=== PATIENT | female | born 1980 | race Caucasian/White ===

== ENCOUNTER → 2017-03-19 | Day surgery (SDC) | payer OTHER ==
[2017-02-27 09:54] VITALS: Ht 172.7 cm; Wt 82.7 kg
[~2017-03-19] VITALS: Ht 172.7 cm; Wt 82.7 kg
[~2017-03-19] MED LIST: ASPI81TA28 PO; ASTN NAE; ATEN50TA8 PO; ATROPINE SULFATE 0.1 MG/ML 5ML SYR IV PRN; B-COTAB53 PO; BCPILLS PO; BUPIVACAINE/EPINEPHRINE 0.25% 1:200,000 30 ML VIAL ONE; BUPIVACAINE/EPINEPHRINE 0.5% MPF 1:200,000 30 ML VIAL ONE; CEFAZOLIN 2000MG IV PUSH 10 ML IV SCH; CETI10TA84 PO; CHOL200010 PO; DEXAMETHASONE SOD INJ 4 MG/ML VIAL ONE; EpHEDrine SULFATE INJ 50 MG/ML AMP IV PRN; EpINEphrine INJ 1MG/ML AMP 1 MG/ML AMP ONE; FENTANYL CITRATE INJ 50 MCG/1 ML 2 ML VIAL IV PRN; FENTANYL CITRATE INJ 50 MCG/1 ML 2 ML VIAL ONE; FLUMAZENIL 0.1 MG/1 ML 10 ML VIAL IV ONE; KETO10TA PO; LACTATED RINGER'S 1000ML 1,000 ML IV SCH; LIDOCAINE HCL 2% 2 ML VIAL (20MG/ML) ONE; LNX125 PO; LORAZEPAM INJ 2 MG in SYRINGE 1 ML IV STA; MAGN1TAB19 PO; MIDAZOLAM HCL 1 MG/ML 2ML VIAL ONE; MISCCAP80 PO; MOME6000 NAE; MONT1TAB3 PO; OMEP40CA41 PO; ONDANSETRON INJ 2 MG/ML 2 ML VIAL IV PRN; ONDANSETRON INJ 2 MG/ML 2 ML VIAL ONE; OXYC-57 PO; OXYCODONE/ACETAMINOPHEN 5-325 TAB PO PRN; PROMETHAZINE HCL INJ 6.25 MG in SODIUM CHLORIDE 0.9% 50ML 50 ML IV PRN; PROPOFOL IV EMULSION 10 MG/ML 20 ML VIAL IV ONE; RANI150T3 PO; RIBO1TAB4 PO; SODIUM CHLORIDE 0.9% 1000ML 1,000 ML IV SCH; TIOT1AER INH; VNTHFA/IN INH
--- NOTE | 2017-03-19 06:39 | History & Physical Bridge - [place] ---
H&P Re-Evaluation Bridge Note: I have examined the patient, reviewed the History & Physical and in the interval since the performance of the History & Physical I have noted the following changes of clinical significance: No changes noted
--- NOTE | 2017-03-19 08:44 | [facility] Post Operative Brief Note ---
Immediate Operative Summary Operative Date Mar 19, 2017. Pre-Operative Diagnosis Left Shoulder Impingement Syndrome Post-Operative Diagnosis same Procedure(s) Performed Left Shoulder Arthroscopic Debridement, Open Bicep Tenodesis Surgeon Dr Carnes Coding Specialist Surgeon(s) Dereck Villarreal Estimated Blood Loss 5 mL Findings as above Specimens none Complication(s) None Disposition Recovery Room / PACU
[2017-03-19 08:49] VITALS: TEMP 37.2
--- NOTE | 2017-03-19 08:49 | Discharge Instructions-SurgCtr ---
Discharge Instructions Date of Service Mar 19, 2017. Visit Reason for Visit: Left Shoulder Impingement Syndrome Discharge Discharge Diagnosis / Problem: SAME ABOVE Discharge Goals Goal(s): Decrease discomfort, Improve function Medications Stopped Medications Name(s): Stopped Aspirin and Ibuprophen 7 days ago. ADRIÁN Duckworth Restart Stopped Medication(s): MAY RESTART ASPIRIN 03/19/2017 MAY RESTART IBUPROFEN WHEN FINISHED WITH TORADOL TAKE TORADOL EVERY 8 HOURS WITH FOOD UNTIL FINISHED Activity Recommendations Activity Limitations: as noted below Lifting Limitations: no more than 5 pounds, until after follow-up appointment Exercise/Sports Limitations: until after follow-up appointment Shower/Bathe: tomorrow Anesthesia . Post Anesthesia Instructions: If you have had General Anesthesia or IV Sedation: * Do not drive today. * Resume driving when surgeon permits. * Do not make important decisions or sign legal documents today. * Call surgeon for: 1. Temperature elevations greater than 101 degrees F. 2. Uncontrollable pain. 3. Excessive bleeding. 4. Persistent nausea and vomiting. 5. Medication intolerance (nausea, vomiting or rash). * For nausea and vomiting use only clear liquids such as: tea, soda, bouillon until nausea subsides, then gradually increase diet as tolerated. * If you have any concerns or questions, call your surgeon's office. If physician is unavailable and it is an emergency, call 911 or go to the nearest emergency room. . Instructions / Follow-Up Instructions / Follow-Up MEDICATIONS: * Resume previous medications unless instructed otherwise by your surgeon. * Always take pain medication on a full stomach or with food to avoid upset stomach. * Do not drink alcohol or drive while taking narcotics. * Ibuprofen or Tylenol may be taken if narcotic not needed. SPECIAL CARE INSTRUCTIONS: __ None _X_ Keep extremity elevated and iced x 48 hours; apply ice 20-30 minutes 8-10 times/day. May remove at night. _X_ Sling (WEAR FOR COMFORT ONLY) __24 hrs/day __ Remove at night __ Shoulder Immobilizer __ 24 hrs/day __ Remove at night _X_ Dressing __ Maintain until seen in office, may shower with plastic over site _X_ Remove dressings in 24-48 hours and then may shower _X_ Cover incisions with band-aids after showering _X_ Do not remove steri-strips (THEY MAY FALL OFF ON THEIR OWN) Call physician if chills or temperature rises above 102 degrees or pain unrelieved by prescribed pain medications at . . Diet Recommendations Home Diet: no limitations Fluid Restriction: None Procedures Procedures Performed: Left Shoulder Arthroscopic Debridement, Open Bicep Tenodesis Pending Studies Studies pending at discharge: no Work Instructions Return To Work: after follow-up Medical Emergencies . Who to Call and When: Medical Emergencies: If at any time you feel your situation is an emergency, please call 911 immediately. . Non-Emergent Contact Non-Emergency issues call your: Primary Care Provider Call Non-Emergent contact if: you have a fever, temperature is above 101.5 . . "Provider Documentation" section prepared by Warner Willett. .
--- NOTE | 2017-03-19 09:00 | OPERATIVE REPORT ---
DATE OF OPERATION: 03/19/2017 PREOPERATIVE DIAGNOSIS: Subacromial scar tissue formation and biceps tendonitis of the left shoulder. POSTOPERATIVE DIAGNOSIS: Same. PROCEDURE: Left shoulder diagnostic arthroscopy with extensive debridement and open subpectoral biceps tenodesis. SURGEON: Dr. Aung Carnes. FACILITIES ADMINISTRATOR: Dereck Willett PA-C, whose assistance was necessary for positioning the arm and helping with instrumentation. ANESTHESIA: Sedation with a left interscalene nerve block. COMPLICATIONS: None. CONDITION: Stable to PACU. INDICATIONS: Ashley is a pleasant 37-year-old female who underwent a decompression, distal clavicle resection 15 months ago. Her AC joint pain is improved but unfortunately she has had this chronic subacromial and biceps tendon pain. I treated her conservatively for a year and a half. Repeat MRI was essentially negative. She elected to undergo scar tissue excision and possible open biceps tenodesis. OPERATION AND FINDINGS: DESCRIPTION OF PROCEDURE: On 03/19/2017, she arrived at [facility] for the above procedure. She was seen in the preoperative holding area and the operative extremity was identified and signed. She was given a preoperative antibiotic and a left interscalene nerve block. She was taken back to the operating room, laid on the table in supine position and given basic sedation. The left shoulder was then prepped and draped in sterile fashion. Time-out was done and the patient and operative extremity was properly identified. On preoperative physical examination, she had full range of motion, no evidence of adhesive capsulitis. The scope was placed in the posterior portal. Diagnostic arthroscopy showed no cartilage damage to the humeral head or the glenoid. The supraspinatus, infraspinatus, teres minor and subscapularis were all checked and intact. The biceps tendon went through a normal sized biceps shadi mechanism, but was red on the dorsal aspect. There was a little fraying of the anterior labrum. An anterior portal was made. A shaver was used to start a small debridement of the intraarticular structures. The biceps tendon was pulled into the joint, which showed further redness and pathology. The biceps tendon was then arthroscopically tenotomized. The scope was then put into the subacromial space. A lateral portal was made. A shaver was used to start a debridement of the area and remove all adhesions. There were several adhesions that went directly from the rotator cuff up to the acromion. Time was spent doing a complete extensive debridement to ensure that the interval was completely freed up. Time was also spent ensuring hemostasis. The bursal side of the rotator cuff was examined extensively without evidence of tear. Arthroscopic instruments were then removed from the shoulder. Attention was turned to an open biceps tenodesis. A small incision was made over the inferior border of the pec major. Dissection was taken down through the fascia and the long head of biceps tendon was delivered out of the wound. The biceps tendon was then whip stitched at the anticipated level of tenodesis and the remainder of the tendon was discarded. A 6 mm hole was drilled in the bicipital groove and the biceps tendon was tenodesed with an Arthrex button that was passed through the posterior cortex in a tension slide technique to deliver the tendon into the 6 mm hole. This gave good fixation. The wound was then irrigated and closed with 3-0 Vicryl and running 3-0 Monocryl. Steri-Strips were placed. Portal sites were closed with 3-0 nylon. She was then placed in a soft dressing and a regular arm sling. She was then taken to the postanesthesia care unit in stable condition. She tolerated the procedure well. I attest to the content of the Intraoperative Record and any orders documented therein. Any exception s are noted below.
--- NOTE | 2017-03-19 09:20 | Anesthesiology Progress Note ---
Anesthesia Post Op Note Date & Time Mar 19, 2017 at 09:18 Vital Signs Pain Intensity: 0 Vital Signs Past 12 Hours Date Time Temp Pulse Resp B/P (MAP) Pulse Ox O2 Delivery O2 Flow Rate FiO2 03/19/17 08:49 37.2 113 16 113/57 (75) 93 Room Air 03/19/17 07:44 99 99 03/19/17 07:44 98 03/19/17 07:41 132/95 03/19/17 07:39 101 8 98 03/19/17 07:39 100 03/19/17 07:37 132/91 03/19/17 07:34 108 0 96 03/19/17 07:34 106 03/19/17 07:29 108 0 03/19/17 07:24 105 0 03/19/17 07:19 104 0 03/19/17 07:14 108 0 03/19/17 07:09 104 0 03/19/17 07:04 0 03/19/17 06:59 0 03/19/17 06:54 0 03/19/17 06:41 36.9 103 16 133/89 (104) 98 Room Air Notes Mental Status: alert / awake / arousable, participated in evaluation Pt Amnestic to Procedure: Yes Nausea / Vomiting: adequately controlled Pain: adequately controlled Airway Patency, RR, SpO2: stable & adequate BP & HR: stable & adequate Hydration State: stable & adequate Anesthetic Complications: no major complications apparent Block working well in pacu
[2017-03-19 09:27] VITALS: BP 123/86; PULSE 100; O2SAT 95
== END | disposition home or self-care (01) ==
LOC: X.SURG 06:20
PROVIDERS: ATTEND Orthopaedic Surgery
DX: M75.22 Bicipital tendinitis, left shoulder (principal); M62.89 Other specified disorders of muscle; R00.0 Tachycardia, unspecified; J45.909 Unspecified asthma, uncomplicated; E78.00 Pure hypercholesterolemia, unspecified; K21.9 Gastro-esophageal reflux disease without esophagitis

== ENCOUNTER 2023-07-14 18:45 | Inpatient (IN) ==
[2023-07-14] MEDS: ONDANSETRON INJ 2 MG/ML 2 ML VIAL IV STA ×2 (19:12→23:46)
[2023-07-14] MEDS: SODIUM CHLORIDE 0.9% 500 ML IV STA (19:12)
[2023-07-14] MEDS: ONDANSETRON INJ 2 MG/ML 2 ML VIAL ONE (19:13)
[2023-07-14 19:24] LABS: iSTAT Creatinine 0.7 mg/dl (0.6-1.3); iSTAT Ionized Calcium 1.24 mmol/l (1.12-1.32); iSTAT Potassium 4.2 mmol/L (3.3-5.0)
--- NOTE | 2023-07-14 19:43 | XRay Report ---
SINGLE VIEW CHEST CLINICAL HISTORY: Dizziness. FINDINGS: An AP, portable, upright chest radiograph is compared to study dated 07/02/2023. The cardiome diastinal silhouette is top normal for projection. There is mild bibasilar atelectasis. The lungs and pleural spaces are otherwise clear. No pneumothorax is seen. The bony thorax is grossly intact. Post operative change is seen along the left humeral shaft. IMPRESSION: No acute cardiopulmonary abnormality. ACT 112: Negative or not required by law. Electronically signed by: Rafael Chen M.D. 07/14/2023 7:41 PM
[2023-07-14] MEDS: diazePAM 5 MG/ML 10ML VIAL IV STA ×3 (19:49→23:42)
[2023-07-14 19:59] LABS: Basophils # (auto) 0.07 K/uL (0.00-0.20); Basophils % (auto) 0.5 %; Eosinophils % (auto) 0.7 %; Hematocrit (blood only) 44.5 % (37.0-47.0); Hemoglobin 14.6 g/dl (12.0-16.0); Immature Granulocytes # (auto) 0.07 K/uL (0.01-0.20); Immature Granulocytes % (auto) 0.5 %; Lymphocytes # (auto) 1.62 K/uL (1.20-3.40); Lymphocytes % (auto) 11.5 %; Mean Corpuscular Hemoglobin 27.7 pg (25.0-34.0); Mean Corpuscular Hgb Conc 32.8 g/dL (32.0-36.0); Mean Corpuscular Volume 84.4 fL (80.0-100.0); Mean Platelet Volume 11.2 fL (9.4-12.4); Monocytes # (auto) 0.93 K/uL (0.11-0.59); Monocytes % (auto) 6.6 %; Neutrophils # (auto) 11.33 K/uL (1.40-6.50); Neutrophils % (auto) 80.2 %; Platelet Count 314 K/uL (130-400); RDW Coefficient of Variation 12.7 % (11.5-14.5); RDW Standard Deviation 38.9 fL (36.4-46.3); Red Blood Count 5.27 M/uL (4.20-5.40); White Blood Count 14.12 K/ul (4.8-10.8)
[2023-07-14 20:15] LABS: Alanine Aminotransferase 30 U/L (7-52); Albumin Globulin Ratio 1.5 (0.9-2); Albumin Level 5.1 gm/dl (3.4-5.0); Alkaline Phosphatase 84 U/L (34-104); Anion Gap 11 (3-11); Aspartate Aminotransferase 22 U/L (13-39); BUN Creatinine Ratio 10.5 (10-20); Bilirubin,Total 0.4 mg/dl (0.2-1.0); Blood Urea Nitrogen 9 mg/dl (6-23); Calcium 10.3 mg/dl (8.6-10.3); Carbon Dioxide 25 mmol/L (21-32); Chloride 102 mmol/L (98-107); Est GFR (African American) 97.3 ml/min; Est GFR (Non-African American) 83.9 ml/min; Globulin 3.4 gm/dl (2.5-4.0); Glucose 130 mg/dl (70-99(Fasting)); Potassium 4.1 mmol/L (3.5-5.1); Sodium 138 mmol/L (136-145); Total Protein 8.5 gm/dl (6.0-8.3)
[2023-07-14] MEDS: OPTIRAY 320 125ml IV ONE (20:16)
--- NOTE | 2023-07-14 20:44 | Emergency Department Note ---
Impression & Plan Dizziness, Nausea & vomiting ED Provider Note NAME: CARMEN OROZCO AGE: 43 SEX: Female INFORMANT: Patient ED PROVIDER(S): Jose Guadalupe Melvin MD CHIEF COMPLAINT: Dizziness PLAN: Disposition: Admitted Outpatient prescription management: none Referral: None MEDICAL DECISION MAKING: Patient was evaluated. IV was established. Patient was treated with IV Zofran and also with a small dose of IV Valium. I-STAT did not reveal any acute findings. Patient was sent for CT and CT angiography of the head and neck. Patient did have weakness in the lower extremities that was more so on the right side. Patient did have a tremor in the right upper extremity which she states she has had before. Head CT negative. CT angiography of the head and neck did not show any acute findings. 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 Patient did require additional doses of the Valium and Zofran. She underwent MR imaging and thankfully no acute process was identified. Radiology noted no ischemia or tumor. Patient CBC does show a mild leukocytosis which could be related to her vomiting. The patient does have a slight elevation of inflammatory markers as well. Further management in the hospital will be necessary as the patient is requiring repeat doses of medications IV in order to control the symptoms. Discussed with patient and family. They are in agreement. Consultation was made with the [facility] service. Discussed the case with . Patient was evaluated in the ER and admitted for further management. Care/management discussed with: natural sciences manager Level of care consideration(s): After review of the information above and other included data, I feel the patient requires escalation of care to admission Triage Nursing notes: reviewed and agree them. Vital Signs: reviewed and remarkable for no significant abnormalities Additional History obtained from: none Chronic Medical/Social Conditions affecting care: none Prior/ Outside/ External records reviewed: none Differential Diagnosis: Benign positional vertigo, dehydration, hypovolemia, anemia, tumor, infection, hypoglycemia, electrolyte abnormalities, cardiac sources, intracerebral event, toxicologic, neurologic, as well as other pathologies. Diagnostics, independently interpreted by me: ECG: Twelve-lead ECG was sinus tachycardia [address] abnormality. No acute ischemia Cardiac Monitoring: Cardiac monitoring ordered by me: The patient was placed on continuous cardiac monitoring and observed. It revealed a normal sinus rhythm at 100 beats per minute without ectopy or evidence of dysrhythmia. Medical decision rules: none Imaging studies: I refer you to the EMR for further details. HPI: 43 year old Female arrives for evaluation of dizziness this is been going on for about 2 weeks. Patient states she feels generally weak. She is beginning worsening tremor in the right upper extremity.. Patient states he was taking meclizine which was helping throughout the week but then all day today she has had increased dizziness, nausea and vomiting. Patient has no complaints of pain. Patient does have a history of syncope. She notes having outpatient cardiac monitoring that did not reveal any problems. She does have a resting borderline sinus tachycardia. Pt denies headache, fevers, chills, diaphoresis, visual changes, neck pain, chest pain, breathing difficulties, abdominal pain, back pain, melena, hematochezia, urinary symptoms, numbness, lymphadenopathy, rash, or other complaints. PAST MEDICAL HISTORY: See Below, hyperlipidemia, sinus tachycardia, PAST SURGICAL HISTORY: See Below, history carpal tunnel release SOCIAL HISTORY: See Below, employed HOME MEDICATIONS: See Below ALLERGIES: See Below VITALS: See Below PHYSICAL EXAMINATION: GENERAL: Awake, alert, anxious-appearing, in no distress HENT: Normocephalic, atraumatic. Oropharynx unremarkable. EYES: Normal conjunctiva. Sclera non-icteric. PERRLA. EOMI. Lateral nystagmus noted. No vertical or rotatory nystagmus. NECK: Inspection normal. Non-tender. Supple. No nuchal rigidity. FROM. No masses. RESPIRATORY: Clear to auscultation. No wheezes. No rales. Normal respiratory effort. CARDIAC: Normal rate. Normal rhythm. No murmurs. No rubs. Extremities warm and well perfused. Pulses equal. No JVD. GI: Soft, non-distended. No tenderness to palpation. No rebound or guarding. No masses. RECTAL: Deferred. MUSCULOSKELETAL: Atraumatic. Chest examination reveals no tenderness. The back is symmetrical on inspection without obvious abnormality. There is no CVA tenderness to palpation. No joint edema. LOWER EXTREMITIES: Calves are equal size bilaterally and non-tender. No edema. No discoloration. NEURO: Normal sensorium. No sensory deficits noted. Patient does have some mild weakness in the lower extremities which seems more on the right. Patient does have some drift in the right lower extremity. No upper extremity drifting. Normal rapid alternating movements present. Patient is able to complete [id number] on both sides but does have difficulty with doing the right heel on the left patricio. Cranial nerves are intact 2 through 12 are intact. Speech is normal SKIN: No rash or jaundice noted. PROCEDURES: none CRITICAL CARE: none OBSERVATION NOTE: none Past Med/Surg History Medical History Obesity Depression Migraine headache Asthma Atypical nevus Chronic GERD Chronic sinusitis Hyperlipidemia Irritable bowel syndrome Mitral valve prolapse Sinus tachycardia Surgical History History of carpal tunnel release Nausea and vomiting after administration of anesthetic agent History of esophagogastroduodenoscopy (EGD) History of laparoscopy H/O shoulder surgery Family History Mother Cardiac disorder Allergy Asthma Family history of diabetes mellitus Father Asthma Brother Asthma Grandfather (Maternal) Hypertension Stroke Aunt Breast cancer Grandfather (Paternal) Myocardial infarction Uncle Prostate cancer Denies family history of Ovarian cancer Colorectal cancer Social History Smoking Status: Never smoker Second Hand Exposure: No; Do You Dip or Chew Tobacco: No; Hx Alcohol Use: Yes Alcohol type: wine Hx Substance Use: No Preferred Language: Fijian Communication Ability: Effective Director Biomedical Engineering Required: No Beliefs That Will Affect Care: None Current Living Situation: Spouse and Family Current Living Situation Comment: LIVES WITH SPOUSE, DAUGHTER current occupational status: employed 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 Feels Safe at Home: Yes Assistive Devices: Glasses Allergies Allergies Allergy/AdvReac Type Severity Reaction Status Date / Time adhesive Allergy Unknown ADHESIVE Verified 07/14/23 20:07 TAPE CAUSES RASH midazolam AdvReac Unknown PARADOXICAL Verified 07/14/23 20:07 REACTION-STAYS AWAKE propranolol AdvReac Unknown CHEST PAIN Verified 07/14/23 20:07 Home Meds Home Medications Medication Instructions Recorded Confirmed albuterol sulfate 2.5 mg/3 mL See Rx Instructions inhalation 10/25/18 07/14/23 (0.083 %) solution for nebulization .COMPLEX PRN Wheezing atenolol 50 mg tablet (Tenormin) 75 mg PO QPM 10/25/18 07/14/23 beclomethasone dipropionate 40 0 mcg inhalation BID PRN Shortness 10/25/18 07/14/23 mcg/actuation aerosol inhaler Of Breath Or Wheezing calcium carbonate-vitamin D3 1 tab PO QAM 10/25/18 07/14/23 [Caltrate 600 plus D] cetirizine 10 mg capsule (Zyrtec) 10 mg PO HS 10/25/18 07/14/23 digoxin 125 mcg (0.125 mg) tablet 125 mcg PO HS 10/25/18 07/14/23 lactobacillus combination no.8 1 tab PO HS 10/25/18 07/14/23 [Adult Probiotic] multivitamin 1 tab PO QAM 10/25/18 07/14/23 omeprazole 40 mg capsule,delayed 40 mg PO QAM 10/25/18 07/14/23 release ondansetron HCl 4 mg tablet 4 mg PO .COMPLEX PRN nausea 10/25/18 07/14/23 zinc 50 mg tablet 50 mg PO QAM 10/25/18 07/14/23 montelukast 10 mg tablet 10 mg PO QAM 04/13/19 07/14/23 (Singulair) famotidine 20 mg tablet (Pepcid) 20 mg PO HS 04/25/20 07/14/23 bupropion HCl 150 mg 24 hr tablet, 150 mg PO QPM 02/26/21 07/14/23 extended release (Wellbutrin XL) albuterol sulfate 90 mcg/actuation 2 inh inhalation QID PRN Wheezing 12/25/21 07/14/23 aerosol inhaler cholecalciferol (vitamin D3) 50 50 mcg PO QAM 12/25/21 07/14/23 mcg (2,000 unit) capsule (Vitamin D3) tiotropium 2.5 mcg-olodaterol 2.5 2 puff inhalation QAM 12/25/21 07/14/23 mcg/actuation mist for inhalation (Stiolto Respimat) triamcinolone acetonide 55 mcg 2 spray intranasal DAILY 06/25/23 07/14/23 nasal spray aerosol atenolol 50 mg tablet 100 mg PO QAM 07/14/23 07/14/23 azelastine 137 mcg (0.1 %) nasal 2 spray intranasal BID 07/14/23 07/14/23 spray aerosol vitamin B complex 1 tab PO DAILY 07/14/23 07/14/23 Results & Data (ED) Vital Signs Vital Signs - 24 hr 07/14/23 18:51 07/14/23 19:30 07/14/23 22:49 Temperature 36.3 C L Temperature Source Temporal Artery Scan Pulse Rate 104 H 108 H Pulse Rate [Apical] 108 H Respiratory Rate 20 18 Respiratory Effort / Characteristics Non-Labored Spontaneous Non-Labored Respiratory Depth Normal Normal Respiratory Pattern Regular Blood Pressure 142/88 H Blood Pressure [Right Arm] 145/98 H Blood Pressure Mean 106 Blood Pressure Mean [Right Arm] 113 Pulse Oximetry 96 96 Oxygen Delivery Method Room Air Room Air Sepsis Recent Fever Within 48 Hours No Sepsis New/Unexplained Change in Mental Status N/A Sepsis Action Taken by Nursing No Action Required 07/14/23 23:22 Temperature Temperature Source Pulse Rate 102 H Pulse Rate [Apical] Respiratory Rate Respiratory Effort / Characteristics Respiratory Depth Respiratory Pattern Blood Pressure Blood Pressure [Right Arm] Blood Pressure Mean Blood Pressure Mean [Right Arm] Pulse Oximetry Oxygen Delivery Method Sepsis Recent Fever Within 48 Hours Sepsis New/Unexplained Change in Mental Status Sepsis Action Taken by Nursing Laboratory Data 07/14/23 19:05 07/14/23 19:05 Lab Results 07/14/23 07/14/23 Range/Units 19:05 19:12 WBC 14.12 H (4.8-10.8) K/ul RBC 5.27 (4.20-5.40) M/uL Hgb 14.6 (12.0-16.0) g/dl POC Hgb 15.0 (12.0-16.0) g/dl Hct 44.5 (37.0-47.0) % POC Hct 44 (37-47) % MCV 84.4 (80.0-100.0) fL MCH 27.7 (25.0-34.0) pg MCHC 32.8 (32.0-36.0) g/dL RDW Std Deviation 38.9 (36.4-46.3) fL RDW Coeff of Shanon 12.7 (11.5-14.5) % Plt Count 314 (130-400) K/uL MPV 11.2 (9.4-12.4) fL Immature Gran % (Auto) 0.5 % Neut % (Auto) 80.2 % Lymph % (Auto) 11.5 % [place] % (Auto) 6.6 % Eos % (Auto) 0.7 % Baso % (Auto) 0.5 % Neut # (Auto) 11.33 H (1.40-6.50) K/uL Lymph # (Auto) 1.62 (1.20-3.40) K/uL [place] # (Auto) 0.93 H (0.11-0.59) K/uL Eos # (Auto) 0.10 (0.00-0.50) K/uL Baso # (Auto) 0.07 (0.00-0.20) K/uL Immature Gran # (Auto) 0.07 (0.01-0.20) K/uL ESR 48 H (0-20) mm/hr POC Sodium 140 (135-144) mmol/L Sodium 138 (136-145) mmol/L POC Potassium 4.2 (3.3-5.0) mmol/L Potassium 4.1 (3.5-5.1) mmol/L POC Chloride 103 (101-112) mmol/L Chloride 102 (98-107) mmol/L Carbon Dioxide 25 (21-32) mmol/L POC Total CO2 26 (24-31) mmol/L Anion Gap 11 (3-11) POC Anion Gap 16.0 (16-25) mmol/L POC BUN 8 (7-18) mg/dl BUN 9 (6-23) mg/dl Creatinine 0.86 (0.6-1.2) mg/dl POC Creatinine 0.7 (0.6-1.3) mg/dl Est Cr Clr Drug Dosing Not Reportable Est GFR ( Amer) 97.3 ml/min Est GFR (Non-Af Amer) 83.9 ml/min BUN/Creatinine Ratio 10.5 (10-20) Glucose 130 H (70-99(Fasting)) mg/dl POC Glucose (other) 128 H (70-99) mg/dl Calcium 10.3 (8.6-10.3) mg/dl POC Ioniz Calcium Nathan 1.24 (1.12-1.32) mmol/l Total Bilirubin 0.4 (0.2-1.0) mg/dl AST 22 (13-39) U/L ALT 30 (7-52) U/L Alkaline Phosphatase 84 (34-104) U/L C-Reactive Protein 0.72 H (0-0.5) mg/dl Total Protein 8.5 H (6.0-8.3) gm/dl Albumin 5.1 H (3.4-5.0) gm/dl Globulin 3.4 (2.5-4.0) gm/dl Albumin/Globulin Ratio 1.5 (0.9-2) HCG, Qual Negative (Negative) Administered Medications Sodium Chloride (Nss) 1,000 mls @ 125 mls/hr IV .Q8H BENJAMÍN Stop: 08/13/23 23:44 Last Admin: 07/15/23 01:03 Dose: 125 mls/hr Documented By: JAYDEN Discontinued Medications Diazepam (Diazepam 5 Mg/Ml 10ml Vial) 1 mg IV NOW STA Stop: 07/14/23 19:13 Last Admin: 07/14/23 19:49 Dose: 1 mg Documented By: JAYDEN Diazepam (Diazepam 5 Mg/Ml 10ml Vial) 2.5 mg IV NOW STA Stop: 07/14/23 20:34 Last Admin: 07/14/23 20:37 Dose: 2.5 mg Documented By: JAYDEN Diazepam (Diazepam 5 Mg/Ml 10ml Vial) 2.5 mg IV NOW STA Stop: 07/14/23 23:25 Last Admin: 07/14/23 23:42 Dose: 2.5 mg Documented By: JAYDEN Diazepam (Diazepam 5 Mg/Ml 10ml Vial) 2.5 mg IV NOW STA Stop: 07/15/23 00:56 Last Admin: 07/15/23 01:03 Dose: 2.5 mg Documented By: JAYDEN Gadobutrol (Gadobutrol 65ml Vial) 10 ml IV ONCE ONE Stop: 07/14/23 22:05 Last Admin: 07/14/23 22:05 Dose: 10 ml Documented By: DANITZA Sodium Chloride (Nss) 500 mls @ 999 mls/hr IV .Q31M STA Stop: 07/14/23 19:39 Last Infusion: 07/14/23 19:48 Dose: Infused Documented By: Admin: 07/14/23 19:12 Dose: 999 mls/hr Documented By: TATIANNA Promethazine HCl (Phenergan) 12.5 mg in 50.5 mls @ 202 mls/hr IV NOW STA Stop: 07/15/23 01:10 Last Admin: 07/15/23 01:03 Dose: 202 mls/hr Documented By: JAYDEN Ioversol (Optiray 320 125ml) 119 ml IV ONCE ONE Stop: 07/14/23 20:17 Last Admin: 07/14/23 20:16 Dose: 119 ml Documented By: MICHELE Ondansetron HCl (Ondansetron Inj 2 Mg/Ml 2 Ml Vial) Confirm Administered Dose 4 mg .ROUTE .STK-MED ONE Stop: 07/14/23 19:08 Last Admin: 07/14/23 19:13 Dose: Not Given Documented By: TATIANNA Ondansetron HCl (Ondansetron Inj 2 Mg/Ml 2 Ml Vial) 4 mg IV NOW STA Stop: 07/14/23 19:09 Last Admin: 07/14/23 19:12 Dose: 4 mg Documented By: TATIANNA Ondansetron HCl (Ondansetron Inj 2 Mg/Ml 2 Ml Vial) 4 mg IV NOW STA Stop: 07/14/23 23:44 Last Admin: 07/14/23 23:46 Dose: 4 mg Documented By: JAYDEN Imaging Data Radiologist's Impression: Chest X-Ray 07/14/23 18:56 SINGLE VIEW CHEST CLINICAL HISTORY: Dizziness. FINDINGS: An AP, portable, upright chest radiograph is compared to study dated 07/02/2023. The cardiomediastinal silhouette is top normal for projection. There is mild bibasilar atelectasis. The lungs and pleural spaces are otherwise clear. No pneumothorax is seen. The bony thorax is grossly intact. Postoperative change is seen along the left humeral shaft. IMPRESSION: No acute cardiopulmonary abnormality. ACT 112: Negative or not required by law. Electronically signed by: Rafael Chen M.D. 07/14/2023 7:41 PM Head CTA 07/14/23 19:11 Exam(s): CTA HEAD With Contrast IV Amt: 119 cc opti 320 EXAM: CT Angiography Head With Intravenous Contrast CLINICAL HISTORY: Reason for exam: vertigo. TECHNIQUE: Axial computed tomographic angiography images of the head with intravenous contrast. CTDI is 14.53 mGy and DLP is 7.27 mGy-cm. Automated exposure control was utilized for the study. A dose lowering technique was utilized adhering to the principles of ALARA. MIP reconstructed images were created and reviewed. CONTRAST: Patient received 119 cc opti 320 of IV contrast COMPARISON: No relevant prior studies available. FINDINGS: Right internal carotid artery: No acute findings. Intracranial segment is patent with no significant stenosis. No aneurysm. Right anterior cerebral artery: Unremarkable. No occlusion or significant stenosis. No aneurysm. Right middle cerebral artery: Unremarkable. No occlusion or significant stenosis. No aneurysm. Right posterior cerebral artery: Unremarkable. No occlusion or significant stenosis. No aneurysm. Right vertebral artery: Unremarkable as visualized. Left internal carotid artery: No acute findings. Intracranial segment is patent with no significant stenosis. No aneurysm. Left anterior cerebral artery: Unremarkable. No occlusion or significant stenosis. No aneurysm. Left middle cerebral artery: Unremarkable. No occlusion or significant stenosis. No aneurysm. 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 No occlusion or significant stenosis. Left vertebral artery: Unremarkable as visualized. Basilar artery: Unremarkable. No occlusion or significant stenosis. No aneurysm. IMPRESSION: No large vessel intracranial occlusion. 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 Electronically signed by: Marcin Mclain M.D. 07/14/23 21:03 PM Neck CTA 07/14/23 19:11 Exam(s): CTA NECK With Contrast IV Amt: 119 cc opti 320 EXAM: CT Angiography Neck With Intravenous Contrast CLINICAL HISTORY: Reason for exam: vertigo. TECHNIQUE: Routine carotid CT angiography protocol was performed with intravenous contrast. NASCET criteria using the distal ICAs for comparison were used for evaluation of stenoses. CTDI is 13.5 mGy and DLP is 550.7 mGy-cm. Automated exposure control was utilized for the study. A dose lowering technique was utilized adhering to the principles of ALARA. MIP reconstructed images were created and reviewed. CONTRAST: Patient received 119 cc opti 320 of IV contrast COMPARISON: None. FINDINGS: VASCULATURE: Right common carotid artery: Unremarkable. No occlusion or significant stenosis. No dissection. Right internal carotid artery: Unremarkable. Extracranial segment is patent with no occlusion or significant stenosis. No dissection. Right external carotid artery: Unremarkable. No occlusion. Right vertebral artery: Unremarkable. No occlusion or significant stenosis. No dissection. Left common carotid artery: Unremarkable. No occlusion or significant stenosis. No dissection. Left internal carotid artery: Unremarkable. Extracranial segment is patent with no occlusion or significant stenosis. No dissection. Left external carotid artery: Unremarkable. No occlusion. Left vertebral artery: Unremarkable. No occlusion or significant stenosis. No dissection. NECK: Bones/joints: Unremarkable. No acute fracture. Soft tissues: Unremarkable. Sinuses: Mucus retention cysts within the right maxillary sinus with mild mucosal thickening. Lung apices: Clear. CAROTID STENOSIS REFERENCE USING NASCET CRITERIA: % ICA stenosis = (1 - narrowest ICA diameter/diameter of distal cervical ICA) x 100. Mild - <50% stenosis. Moderate - 50-69% stenosis. Severe - 70-94% stenosis. Near occlusion - 95-99% stenosis. Occluded - 100% stenosis. IMPRESSION: No acute findings in the arteries of the neck. Electronically signed by: Marcin Mclain M.D. 07/14/23 21:[address] 07/14/23 19:14 Exam(s): CT HEAD Without Contrast EXAM: CT Head Without Intravenous Contrast CLINICAL HISTORY: Reason for exam: vertigo. TECHNIQUE: Axial computed tomography images of the head/brain without intravenous contrast. CTDI is 31.65 mGy and DLP is 512.02 mGy-cm. Automated exposure control was utilized for the study. A dose lowering technique was utilized adhering to the principles of ALARA. COMPARISON: No relevant prior studies available. FINDINGS: Brain: Unremarkable. No hemorrhage. No significant white matter disease. No edema. Ventricles: Unremarkable. No ventriculomegaly. Bones/joints: Unremarkable. No acute fracture. Soft tissues: Unremarkable. Sinuses: Unremarkable as visualized. No acute sinusitis. Mastoid air cells: Unremarkable as visualized. No mastoid effusion. IMPRESSION: Normal head/brain CT. Electronically signed by: Marcin Mclain M.D. 07/14/23 20:52 PM Brain MRI 07/14/23 21:16 Exam(s): MRI HEAD W/WO Contrast IV Amt: 10 CC REA EXAM: MR Head Without and With Intravenous Contrast CLINICAL HISTORY: Reason for exam: severe vertigo. TECHNIQUE: Magnetic resonance images of the head/brain without and with intravenous contrast in multiple planes. CONTRAST: Patient received 10 CC REA of IV contrast COMPARISON: No relevant prior studies available. FINDINGS: Brain: Unremarkable. No mass. No hemorrhage. No acute infarct. Ventricles: Unremarkable. No ventriculomegaly. Bones/joints: Unremarkable. No acute fracture. Sinuses: 1.8 cm mucus retention cyst in the right maxillary sinus. No acute sinusitis. Mastoid air cells: Unremarkable as visualized. No mastoid effusion. Orbits: Unremarkable as visualized. IMPRESSION: No acute findings in the head/brain. Electronically signed by: Marcin Mclain M.D. 07/14/23 23:17 PM Discharge Plan Visit Data Chief Complaint: Vertigo Stated Complaint: VERTIGO ED Provider: Jose Guadalupe Melvin Discharge Problem: Dizziness, Nausea & vomiting
--- NOTE | 2023-07-14 20:53 | CT Scan Report ---
Exam(s): CT HEAD Without Contrast EXAM: CT Head Without Intravenous Contrast CLINICAL HISTORY: Reason for exam: vertigo. TECHNIQUE: Axial computed tomography images of the head/brain without intravenous contrast. CTDI is 31.65 mGy and DLP is 512.02 mGy-cm. Automated exposure control was utilized for the study. A dose lowering technique was utilized adhering to the principles of ALARA. COMPARISON: No relevant prior studies available. FINDINGS: Brain: Unremarkable. No hemorrhage. No significant white matter disease. No edema. Ventricles: Unremarkable. No ventriculomegaly. Bones/joints: Unremarkable. No acute fracture. Soft tissues: Unremarkable. Sinuses: Unremarkable as visualized. No acute sinusitis. Mastoid air cells: Unremarkable as visualized. No mastoid effusion. IMPRESSION: Normal head/brain CT. Electronically signed by: Marcin Mclain M.D. 07/14/23 20:52 PM
--- NOTE | 2023-07-14 21:04 | CT Scan Report ---
Exam(s): CTA HEAD With Contrast IV Amt: 119 cc opti 320 EXAM: CT Angiography Head With Intravenous Contrast CLINICAL HISTORY: Reason for exam: vertigo. TECHNIQUE: Axial computed tomographic angiography images of the head with intravenous contrast. CTDI is 14.53 mGy and DLP is 7.27 mGy-cm. Automated exposure control was utilized for the study. A dose lowering technique was utilized adhering to the principles of ALARA. MIP reconstructed images were created and reviewed. CONTRAST: Patient received 119 cc opti 320 of IV contrast COMPARISON: No relevant prior studies available. FINDINGS: Right internal carotid artery: No acute findings. Intracranial segment is patent with no significant stenosis. No aneurysm. Right anterior cerebral artery: Unremarkable. No occlusion or significant stenosis. No aneurysm. Right middle cerebral artery: Unremarkable. No occlusion or significant stenosis. No aneurysm. Right posterior cerebral artery: Unremarkable. No occlusion or significant stenosis. No aneurysm. Right vertebral artery: Unremarkable as visualized. Left internal carotid artery: No acute findings. Intracranial segment is patent with no significant stenosis. No aneurysm. Left anterior cerebral artery: Unremarkable. No occlusion or significant stenosis. No aneurysm. Left middle cerebral artery: Unremarkable. No occlusion or significant stenosis. No aneurysm. 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 No occlusion or significant stenosis. Left vertebral artery: Unremarkable as visualized. Basilar artery: Unremarkable. No occlusion or significant stenosis. No aneurysm. IMPRESSION: No large vessel intracranial occlusion. 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 Electronically signed by: Marcin Mclain M.D. 07/14/23 21:03 PM
--- NOTE | 2023-07-14 21:07 | CT Scan Report ---
Exam(s): CTA NECK With Contrast IV Amt: 119 cc opti 320 EXAM: CT Angiography Neck With Intravenous Contrast CLINICAL HISTORY: Reason for exam: vertigo. TECHNIQUE: Routine carotid CT angiography protocol was performed with intravenous contrast. NASCET criteria using the distal ICAs for comparison were used for evaluation of stenoses. CTDI is 13.5 mGy and DLP is 550.7 mGy-cm. Automated exposure control was utilized for the study. A dose lowering technique was utilized adhering to the principles of ALARA. MIP reconstructed images were created and reviewed. CONTRAST: Patient received 119 cc opti 320 of IV contrast COMPARISON: None. FINDINGS: VASCULATURE: Right common carotid artery: Unremarkable. No occlusion or significant stenosis. No dissection. Right internal carotid artery: Unremarkable. Extracranial segment is patent with no occlusion or significant stenosis. No dissection. Right external carotid artery: Unremarkable. No occlusion. Right vertebral artery: Unremarkable. No occlusion or significant stenosis. No dissection. Left common carotid artery: Unremarkable. No occlusion or significant stenosis. No dissection. Left internal carotid artery: Unremarkable. Extracranial segment is patent with no occlusion or significant stenosis. No dissection. Left external carotid artery: Unremarkable. No occlusion. Left vertebral artery: Unremarkable. No occlusion or significant stenosis. No dissection. NECK: Bones/joints: Unremarkable. No acute fracture. Soft tissues: Unremarkable. Sinuses: Mucus retention cysts within the right maxillary sinus with mild mucosal thickening. Lung apices: Clear. CAROTID STENOSIS REFERENCE USING NASCET CRITERIA: % ICA stenosis = (1 - narrowest ICA diameter/diameter of distal cervical ICA) x 100. Mild - <50% stenosis. Moderate - 50-69% stenosis. Severe - 70-94% stenosis. Near occlusion - 95-99% stenosis. Occluded - 100% stenosis. IMPRESSION: No acute findings in the arteries of the neck. Electronically signed by: Marcin Mclain M.D. 07/14/23 21:05 PM
[2023-07-14 21:08] LABS: Pregnancy Test, Serum Negative (Negative)
[2023-07-14] MEDS: GADOBUTROL 65ML VIAL IV ONE (22:05)
[2023-07-14 22:31] LABS: C Reactive Protein 0.72 mg/dl (0-0.5)
--- NOTE | 2023-07-14 23:18 | Magnetic Resonance Report ---
Exam(s): MRI HEAD W/WO Contrast IV Amt: 10 CC REA EXAM: MR Head Without and With Intravenous Contrast CLINICAL HISTORY: Reason for exam: severe vertigo. TECHNIQUE: Magnetic resonance images of the head/brain without and with intravenous contrast in multiple planes. CONTRAST: Patient received 10 CC REA of IV contrast COMPARISON: No relevant prior studies available. FINDINGS: Brain: Unremarkable. No mass. No hemorrhage. No acute infarct. Ventricles: Unremarkable. No ventriculomegaly. Bones/joints: Unremarkable. No acute fracture. Sinuses: 1.8 cm mucus retention cyst in the right maxillary sinus. No acute sinusitis. Mastoid air cells: Unremarkable as visualized. No mastoid effusion. Orbits: Unremarkable as visualized. IMPRESSION: No acute findings in the head/brain. Electronically signed by: Marcin Mclain M.D. 07/14/23 23:17 PM
[2023-07-15] MEDS: SODIUM CHLORIDE 0.9% 1,000 ML IV SCH ×2 (01:03→02:56)
[2023-07-15] MEDS: PROMETHAZINE 12.5 MG/50.5 ML BAG IV STA (01:03)
[2023-07-15] MEDS: diazePAM 5 MG/ML 10ML VIAL IV STA (01:03)
--- NOTE | 2023-07-15 01:13 | History & Physical Report ---
Date of Service July 15, 2023 Assessment & Plan (1) Dizziness: Plan: 43-year-old female with past med history significant for hypertension, moderate persistent asthma, mixed rhinitis, mitral valve prolapse, sinus tachycardia, irritable bowel syndrome, gastroparesis, GERD, migraines presents with Ongoing vertigo for last 2 weeks. Initially meclizine seemed to help but lately it is not helping. Also having right upper extremity tremor for some time. And lately developed some weakness in right lower extremity.Today was having significant dizziness nausea and vomiting. No headaches. No fevers. Lights bothering her. No chest pain or shortness of breath. No abdominal pain. Normal bowel and bladder movements. Hemodynamics are okay. Patient has had COVID in February 2003 and in March 2023 had had a near syncopal episode and having chest burning and dyspnea on exertion. Seen by cardiology and had echocardiogram which showed showed mild mitral valve prolapse and also had Holter which showed inappropriate sinus tachycardia. Patient is on atenolol. Plan for Stress Test in August 2023. 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 for further recommendations History of inappropriate sinus tachycardia On atenolol and digoxin Follows with cardiology There is a plan for stress test Moderate persistent asthma Mixed rhinitis Continue home meds Will monitor Hypertension On atenolol Will monitor GERD On famotidine and omeprazole DVT prophylaxis SCDs for now Disposition Med/telemetry Full code History of Present Illness Chief Complaint: Severe vertigo Primary Care Provider: Leeroy Swift MD 43-year-old female with past med history significant for hypertension, moderate persistent asthma, mixed rhinitis, mitral valve prolapse, sinus tachycardia, irritable bowel syndrome, gastroparesis, GERD, migraines presents with Ongoing vertigo for last 2 weeks. Initially meclizine seemed to help but lately it is not helping. Also having right upper extremity tremor for some time. And lately developed some weakness in right lower extremity.Today was having significant dizziness nausea and vomiting. No headaches. No fevers. Lights bothering her. No chest pain or shortness of breath. No abdominal pain. Normal bowel and bladder movements. Hemodynamics are okay. Patient has had COVID in February 2003 and in March 2023 had had a near syncopal episode and having chest burning and dyspnea on exertion. Seen by cardiology and had echocardiogram which showed showed mild mitral valve prolapse and also had Holter which showed inappropriate sinus tachycardia. Patient is on atenolol. Plan for Stress Test in August 2023. Past medical status mentioned above. Past surgical history. EGD. EGD transendoscopic dilatation. Laparoscopic surgery looking for endometriosis. Shoulder arthroscopy. Social history. . No smoking. Alcohol rarely. No drug use. Family history. Father has allergies. Asthma. Mitral valve prolapse. Mother has allergies. Asthma. mitral valve prolapse. Maternal grandfather had pancreatic cancer. Stroke. Maternal grandmother had laryngeal cancer. Brother has asthma. Paternal grandmother had thyroid disorder. Allergies Allergy/AdvReac Type Severity Reaction Status Date / Time adhesive Allergy Unknown ADHESIVE Verified 07/14/23 20:07 TAPE CAUSES RASH midazolam AdvReac Unknown PARADOXICAL Verified 07/14/23 20:07 REACTION-STAYS AWAKE propranolol AdvReac Unknown CHEST PAIN Verified 07/14/23 20:07 Home Medications Medication Instructions Recorded Confirmed Type albuterol sulfate 2.5 mg/3 mL See Rx Instructions inhalation 10/25/18 07/14/23 History (0.083 %) solution for nebulization .COMPLEX PRN Wheezing atenolol 50 mg tablet (Tenormin) 75 mg PO QPM 10/25/18 07/14/23 History beclomethasone dipropionate 40 0 mcg inhalation BID PRN Shortness 10/25/18 07/14/23 History mcg/actuation aerosol inhaler Of Breath Or Wheezing calcium carbonate-vitamin D3 1 tab PO QAM 10/25/18 07/14/23 History [Caltrate 600 plus D] cetirizine 10 mg capsule (Zyrtec) 10 mg PO HS 10/25/18 07/14/23 History digoxin 125 mcg (0.125 mg) tablet 125 mcg PO HS 10/25/18 07/14/23 History lactobacillus combination no.8 1 tab PO HS 10/25/18 07/14/23 History [Adult Probiotic] multivitamin 1 tab PO QAM 10/25/18 07/14/23 History omeprazole 40 mg capsule,delayed 40 mg PO QAM 10/25/18 07/14/23 History release ondansetron HCl 4 mg tablet 4 mg PO .COMPLEX PRN nausea 10/25/18 07/14/23 History zinc 50 mg tablet 50 mg PO QAM 10/25/18 07/14/23 History montelukast 10 mg tablet 10 mg PO QAM 04/13/19 07/14/23 History (Singulair) famotidine 20 mg tablet (Pepcid) 20 mg PO HS 04/25/20 07/14/23 History bupropion HCl 150 mg 24 hr tablet, 150 mg PO QPM 02/26/21 07/14/23 History extended release (Wellbutrin XL) albuterol sulfate 90 mcg/actuation 2 inh inhalation QID PRN Wheezing 12/25/21 07/14/23 History aerosol inhaler cholecalciferol (vitamin D3) 50 50 mcg PO QAM 12/25/21 07/14/23 History mcg (2,000 unit) capsule (Vitamin D3) tiotropium 2.5 mcg-olodaterol 2.5 2 puff inhalation QAM 12/25/21 07/14/23 His tory mcg/actuation mist for inhalation (Stiolto Respimat) triamcinolone acetonide 55 mcg 2 spray intranasal DAILY 06/25/23 07/14/23 History nasal spray aerosol atenolol 50 mg tablet 100 mg PO QAM 07/14/23 07/14/23 History azelastine 137 mcg (0.1 %) nasal 2 spray intranasal BID 07/14/23 07/14/23 History spray aerosol vitamin B complex 1 tab PO DAILY 07/14/23 07/14/23 History Past Med/Surg History Medical History Obesity Depression Migraine headache Asthma Atypical nevus Chronic GERD Chronic sinusitis Hyperlipidemia Irritable bowel syndrome Mitral valve prolapse Sinus tachycardia Surgical History History of carpal tunnel release Nausea and vomiting after administration of anesthetic agent History of esophagogastroduodenoscopy (EGD) History of laparoscopy H/O shoulder surgery Family History Mother Cardiac disorder Allergy Asthma Family history of diabetes mellitus Father Asthma Brother Asthma Grandfather (Maternal) Hypertension Stroke Aunt Breast cancer Grandfather (Paternal) Myocardial infarction Uncle Prostate cancer Denies family history of Ovarian cancer Colorectal cancer Social History Smoking Status: Never smoker Second Hand Exposure: No; Do You Dip or Chew Tobacco: No; Hx Alcohol Use: Yes Alcohol type: wine Hx Substance Use: No Preferred Language: Icelandic Communication Ability: Effective Payroll And Benefits Assistant Required: No Beliefs That Will Affect Care: None Current Living Situation: Spouse Current Living Situation Comment: LIVES WITH SPOUSE, DAUGHTER current occupational status: employed 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 ENT- oropharynx clear Neck- supple, no JVD. Lungs- clear to auscultation no wheezing or crackles. Heart- regular rhythm; no murmur, no gallop. Abdomen- normal bowel sounds, benign Extremities- no pretibial edema, no erythema seen Neuro- alert, oriented PERRL, ; no facial palsy; no dysarthria; obeys commands Results & Data Results & Data Vital Signs (Past 12 Hours) Vital Signs Temp Pulse Pulse Resp BP BP Pulse Ox 07/14/23 23:22 102 H 07/14/23 22:49 108 H 18 145/98 H 96 07/14/23 19:30 108 H 07/14/23 18:51 36.3 C L 104 H 20 142/88 H 96 O2 Del Method 07/14/23 23:22 07/14/23 22:49 Room Air 07/14/23 19:30 07/14/23 18:51 Room Air Diagnostic Findings Laboratory Results WBC 14.12 K/ul (4.8-10.8) H 07/14/23 19:05 RBC 5.27 M/uL (4.20-5.40) 07/14/23 19:05 Hgb 14.6 g/dl (12.0-16.0) 07/14/23 19:05 POC Hgb 15.0 g/dl (12.0-16.0) 07/14/23 19:12 Hct 44.5 % (37.0-47.0) 07/14/23 19:05 POC Hct 44 % (37-47) 07/14/23 19:12 MCV 84.4 fL (80.0-100.0) 07/14/23 19:05 MCH 27.7 pg (25.0-34.0) 07/14/23 19:05 MCHC 32.8 g/dL (32.0-36.0) 07/14/23 19:05 RDW Std Deviation 38.9 fL (36.4-46.3) 07/14/23 19:05 RDW Coeff of Shanon 12.7 % (11.5-14.5) 07/14/23 19:05 Plt Count 314 K/uL (130-400) 07/14/23 19:05 MPV 11.2 fL (9.4-12.4) 07/14/23 19:05 Immature Gran % (Auto) 0.5 % 07/14/23 19:05 Neut % (Auto) 80.2 % 07/14/23 19:05 Lymph % (Auto) 11.5 % 07/14/23 19:05 [place] % (Auto) 6.6 % 07/14/23 19:05 Eos % (Auto) 0.7 % 07/14/23 19:05 Baso % (Auto) 0.5 % 07/14/23 19:05 Neut # (Auto) 11.33 K/uL (1.40-6.50) H 07/14/23 19:05 Lymph # (Auto) 1.62 K/uL (1.20-3.40) 07/14/23 19:05 [place] # (Auto) 0.93 K/uL (0.11-0.59) H 07/14/23 19:05 Eos # (Auto) 0.10 K/uL (0.00-0.50) 07/14/23 19:05 Baso # (Auto) 0.07 K/uL (0.00-0.20) 07/14/23 19:05 Immature Gran # (Auto) 0.07 K/uL (0.01-0.20) 07/14/23 19:05 ESR 48 mm/hr (0-20) H 07/14/23 19:05 POC Sodium 140 mmol/L (135-144) 07/14/23 19:12 Sodium 138 mmol/L (136-145) 07/14/23 19:05 POC Potassium 4.2 mmol/L (3.3-5.0) 07/14/23 19:12 Potassium 4.1 mmol/L (3.5-5.1) 07/14/23 19:05 POC Chloride 103 mmol/L (101-112) 07/14/23 19:12 Chloride 102 mmol/L (98-107) 07/14/23 19:05 Carbon Dioxide 25 mmol/L (21-32) 07/14/23 19:05 POC Total CO2 26 mmol/L (24-31) 07/14/23 19:12 Anion Gap 11 (3-11) 07/14/23 19:05 POC Anion Gap 16.0 mmol/L (16-25) 07/14/23 19:12 POC BUN 8 mg/dl (7-18) 07/14/23 19:12 BUN 9 mg/dl (6-23) 07/14/23 19:05 Creatinine 0.86 mg/dl (0.6-1.2) 07/14/23 19:05 POC Creatinine 0.7 mg/dl (0.6-1.3) 07/14/23 19:12 Est Cr Clr Drug Dosing Not Reportable 07/14/23 19:05 Est GFR ( Amer) 97.3 ml/min 07/14/23 19:05 Est GFR (Non-Af Amer) 83.9 ml/min 07/14/23 19:05 BUN/Creatinine Ratio 10.5 (10-20) 07/14/23 19:05 Glucose 130 mg/dl (70-99(Fasting)) H 07/14/23 19:05 POC Glucose (other) 128 mg/dl (70-99) H 07/14/23 19:12 Calcium 10.3 mg/dl (8.6-10.3) 07/14/23 19:05 POC Ioniz Calcium Nathan 1.24 mmol/l (1.12-1.32) 07/14/23 19:12 Total Bilirubin 0.4 mg/dl (0.2-1.0) 07/14/23 19:05 AST 22 U/L (13-39) 07/14/23 19:05 ALT 30 U/L (7-52) 07/14/23 19:05 Alkaline Phosphatase 84 U/L (34-104) 07/14/23 19:05 C-Reactive Protein 0.72 mg/dl (0-0.5) H 07/14/23 19:05 Total Protein 8.5 gm/dl (6.0-8.3) H 07/14/23 19:05 Albumin 5.1 gm/dl (3.4-5.0) H 07/14/23 19:05 Globulin 3.4 gm/dl (2.5-4.0) 07/14/23 19:05 Albumin/Globulin Ratio 1.5 (0.9-2) 07/14/23 19:05 HCG, Qual Negative (Negative) 07/14/23 19:05 Impressions Chest X-Ray 07/14/23 18:56 SINGLE VIEW CHEST CLINICAL HISTORY: Dizziness. FINDINGS: An AP, portable, upright chest radiograph is compared to study dated 07/02/2023. The cardiomediastinal silhouette is top normal for projection. There is mild bibasilar atelectasis. The lungs and pleural spaces are otherwise clear. No pneumothorax is seen. The bony thorax is grossly intact. Postoperative change is seen along the left humeral shaft. IMPRESSION: No acute cardiopulmonary abnormality. ACT 112: Negative or not required by law. Electronically signed by: Rafael Chen M.D. 07/14/2023 7:41 PM Head CTA 07/14/23 19:11 Exam(s): CTA HEAD With Contrast IV Amt: 119 cc opti 320 EXAM: CT Angiography Head With Intravenous Contrast CLINICAL HISTORY: Reason for exam: vertigo. TECHNIQUE: Axial computed tomographic angiography images of the head with intravenous contrast. CTDI is 14.53 mGy and DLP is 7.27 mGy-cm. Automated exposure control was utilized for the study. A dose lowering technique was utilized adhering to the principles of ALARA. MIP reconstructed images were created and reviewed. CONTRAST: Patient received 119 cc opti 320 of IV contrast COMPARISON: No relevant prior studies available. FINDINGS: Right internal carotid artery: No acute findings. Intracranial segment is patent with no significant stenosis. No aneurysm. Right anterior cerebral artery: Unremarkable. No occlusion or significant stenosis. No aneurysm. Right middle cerebral artery: Unremarkable. No occlusion or significant stenosis. No aneurysm. Right posterior cerebral artery: Unremarkable. No occlusion or significant stenosis. No aneurysm. Right vertebral artery: Unremarkable as visualized. Left internal carotid artery: No acute findings. Intracranial segment is patent with no significant stenosis. No aneurysm. Left anterior cerebral artery: Unremarkable. No occlusion or significant stenosis. No aneurysm. Left middle cerebral artery: Unremarkable. No occlusion or significant stenosis. No aneurysm. 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 No occlusion or significant stenosis. Left vertebral artery: Unremarkable as visualized. Basilar artery: Unremarkable. No occlusion or significant stenosis. No aneurysm. IMPRESSION: No large vessel intracranial occlusion. 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 Electronically signed by: Marcin Mclain M.D. 07/14/23 21:03 PM Neck CTA 07/14/23 19:11 Exam(s): CTA NECK With Contrast IV Amt: 119 cc opti 320 EXAM: CT Angiography Neck With Intravenous Contrast CLINICAL HISTORY: Reason for exam: vertigo. TECHNIQUE: Routine carotid CT angiography protocol was performed with intravenous contrast. NASCET criteria using the distal ICAs for comparison were used for evaluation of stenoses. CTDI is 13.5 mGy and DLP is 550.7 mGy-cm. Automated exposure control was utilized for the study. A dose lowering technique was utilized adhering to the principles of ALARA. MIP reconstructed images were created and reviewed. CONTRAST: Patient received 119 cc opti 320 of IV contrast COMPARISON: None. FINDINGS: VASCULATURE: Right common carotid artery: Unremarkable. No occlusion or significant stenosis. No dissection. Right internal carotid artery: Unremarkable. Extracranial segment is patent with no occlusion or significant stenosis. No dissection. Right external carotid artery: Unremarkable. No occlusion. Right vertebral artery: Unremarkable. No occlusion or significant stenosis. No dissection. Left common carotid artery: Unremarkable. No occlusion or significant stenosis. No dissection. Left internal carotid artery: Unremarkable. Extracranial segment is patent with no occlusion or significant stenosis. No dissection. Left external carotid artery: Unremarkable. No occlusion. Left vertebral artery: Unremarkable. No occlusion or significant stenosis. No dissection. NECK: Bones/joints: Unremarkable. No acute fracture. Soft tissues: Unremarkable. Sinuses: Mucus retention cysts within the right maxillary sinus with mild mucosal thickening. Lung apices: Clear. CAROTID STENOSIS REFERENCE USING NASCET CRITERIA: % ICA stenosis = (1 - narrowest ICA diameter/diameter of distal cervical ICA) x 100. Mild - <50% stenosis. Moderate - 50-69% stenosis. Severe - 70-94% stenosis. Near occlusion - 95-99% stenosis. Occluded - 100% stenosis. IMPRESSION: No acute findings in the arteries of the neck. Electronically signed by: Marcin Mclain M.D. 07/14/23 21:[address] 07/14/23 19:14 Exam(s): CT HEAD Without Contrast EXAM: CT Head Without Intravenous Contrast CLINICAL HISTORY: Reason for exam: vertigo. TECHNIQUE: Axial computed tomography images of the head/brain without intravenous contrast. CTDI is 31.65 mGy and DLP is 512.02 mGy-cm. Automated exposure control was utilized for the study. A dose lowering technique was utilized adhering to the principles of ALARA. COMPARISON: No relevant prior studies available. FINDINGS: Brain: Unremarkable. No hemorrhage. No significant white matter disease. No edema. Ventricles: Unremarkable. No ventriculomegaly. Bones/joints: Unremarkable. No acute fracture. Soft tissues: Unremarkable. Sinuses: Unremarkable as visualized. No acute sinusitis. Mastoid air cells: Unremarkable as visualized. No mastoid effusion. IMPRESSION: Normal head/brain CT. Electronically signed by: Marcin Mclain M.D. 07/14/23 20:52 PM Brain MRI 07/14/23 21:16 Exam(s): MRI HEAD W/WO Contrast IV Amt: 10 CC REA EXAM: MR Head Without and With Intravenous Contrast CLINICAL HISTORY: Reason for exam: severe vertigo. TECHNIQUE: Magnetic resonance images of the head/brain without and with intravenous contrast in multiple planes. CONTRAST: Patient received 10 CC REA of IV contrast COMPARISON: No relevant prior studies available. FINDINGS: Brain: Unremarkable. No mass. No hemorrhage. No acute infarct. Ventricles: Unremarkable. No ventriculomegaly. Bones/joints: Unremarkable. No acute fracture. Sinuses: 1.8 cm mucus retention cyst in the right maxillary sinus. No acute sinusitis. Mastoid air cells: Unremarkable as visualized. No mastoid effusion. Orbits: Unremarkable as visualized. IMPRESSION: No acute findings in the head/brain. Electronically signed by: Marcin Mclain M.D. 07/14/23 23:17 PM ECG Additional Comments: ECG. Sinus tachycardia rate of 105. Nonspecific T wave abnormality. Code Status & VTE Plan VTE Prophylaxis Plan VTE Prophylaxis will be ordered: Yes
[2023-07-15] MEDS ORDERED: ALBUTEROL 0.083% NEBU SOLN 3 ML VIAL INH PRN (02:10)
[2023-07-15] MEDS ORDERED: BECLOMETHASONE DIPROPIONATE INH PRN (02:10)
[2023-07-15] MEDS ORDERED: diazePAM 5 MG/ML 10ML VIAL IV PRN (02:10)
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
[2023-07-15] MEDS: ONDANSETRON INJ 2 MG/ML 2 ML VIAL IV PRN (07:48)
[2023-07-15] MEDS: diazePAM 5 MG TABLET PO PRN (08:02)
[2023-07-15 08:12] LABS: Basophils # (auto) 0.05 K/uL (0.00-0.20); Basophils % (auto) 0.5 %; Eosinophils # (auto) 0.06 K/uL (0.00-0.50); Eosinophils % (auto) 0.6 %; Hematocrit (blood only) 40.9 % (37.0-47.0); Hemoglobin 13.7 g/dl (12.0-16.0); Immature Granulocytes # (auto) 0.03 K/uL (0.01-0.20); Immature Granulocytes % (auto) 0.3 %; Lymphocytes # (auto) 2.36 K/uL (1.20-3.40); Lymphocytes % (auto) 23.2 %; Mean Corpuscular Hemoglobin 27.9 pg (25.0-34.0); Mean Corpuscular Hgb Conc 33.5 g/dL (32.0-36.0); Mean Corpuscular Volume 83.3 fL (80.0-100.0); Mean Platelet Volume 10.8 fL (9.4-12.4); Monocytes # (auto) 0.88 K/uL (0.11-0.59); Monocytes % (auto) 8.7 %; Neutrophils # (auto) 6.79 K/uL (1.40-6.50); Neutrophils % (auto) 66.7 %; Platelet Count 293 K/uL (130-400); RDW Coefficient of Variation 12.9 % (11.5-14.5); RDW Standard Deviation 38.7 fL (36.4-46.3); Red Blood Count 4.91 M/uL (4.20-5.40); White Blood Count 10.17 K/ul (4.8-10.8)
[2023-07-15 08:33] LABS: BUN Creatinine Ratio 12.3 (10-20); Calcium 9.8 mg/dl (8.6-10.3); Creatinine Clr Calc Pharmacy 124.1 ml/min; Est GFR (African American) 118.6 ml/min; Est GFR (Non-African American) 102.3 ml/min; Magnesium 2.1 mg/dl (1.7-2.4)
[2023-07-15] MEDS: ATENOLOL 50 MG TABLET PO SCH (09:50)
[2023-07-15] MEDS: PANTOprazole 40 MG TAB PO SCH (09:51)
[2023-07-15] MEDS: MONTELUKAST SODIUM 10 MG TABLET PO SCH (09:51)
--- NOTE | 2023-07-15 10:40 | Electrocardiogram Report ---
Test Reason : Blood Pressure : / mmHG Vent. Rate : 105 BPM Atrial Rate : 105 BPM P-R Int : 144 ms QRS Dur : 080 ms QT Int : 322 ms P-R-T Axes : 046 -09 036 degrees QTc Int : 425 ms Sinus tachycardia Nonspecific T wave abnormality Abnormal ECG No previous ECGs available Confirmed by Vicente Chavez ([id number]) on 07/15/2023 10:39:53 AM Referred By: REFERRED SELF Confirmed By:Sen Chavez
[2023-07-15] MEDS: PROMETHAZINE HCL 12.5 MG in SODIUM CHLORIDE 0.9% 50 ML IV PRN (11:08)
[2023-07-15] MEDS: MECLIZINE HCL 25 MG TAB PO PRN (11:50)
--- NOTE | 2023-07-15 12:35 | Neurology Consultation ---
Date of Consultation July 15, 2023 Assessment & Plan (1) Vertigo: Ongoing vertigo with new RLE weakness Continue symptom management Recommend continued work up to include the following: MRI cervical thoracic and lumbar spine with and without contrast Echocardiogram as part of complete workup Continue frequent neurological assessments Obtain stat CT brain without contrast for any acute neurological decline Continue to monitor telemetry closely Continue to monitor/control blood pressure & blood glucose Metabolic workup should include hgbA1c, fasting lipids, homocysteine, TSH, D Dimer Ok from neurology perspective for VTE prophylaxis PT/OT/SLT to eval and treat Recommend ENT referral (2) Right leg weakness: Recommend MRI imaging as above (3) Aneurysm: Recommend outpatient follow up with neurology Plan for follow up imaging/surveillance of small incidental Pcomm aneurysm Telehealth Consultation Telehealth Information Telehealth Information: I performed this visit using a real-time telehealth connection between my location and the patients location ([facility]). After connecting through interactive tele-video, patient was identified by name and date of and/or wristband check.Patient (or authorized healthcare new accounts banking representative) was informed that this was a telemedicine visit and it was being conducted confidentially over secure lines. My office door was closed and no one else was present in the room with me.Patient (or authorized healthcare new accounts banking representative) provided consent to proceed with the visit, expressed an understanding of privacy and security of the telemedicine visit, and gave permission to have a hospital new accounts banking representative in the room in order to assist with the visit and to conduct portions of the visit, as needed. I informed the patient (or authorized healthcare new accounts banking representative) that I reviewed their record and presented the opportunity for them to ask any questions regarding the visit today. The patient agreed to participate. History of Present Illness Reason for Consultation: Vertigo Requesting Physician: Dr. Zuñiga Attending Physician: Dale Zuñiga MD History of Present Illness 43yo female presented to ER with complaint of vertiginous symptoms ongoing for approximately the last two weeks. She denies changes in hearing, jaw pain or ear pressure. Denies recent fever or illness. She reports nausea and vomiting. Reports meclizine helped at first but seems less effective now. She also reported RUE tremor and RLE weakness. States she didnt notice the RLE weakness until undergoing examination. Reports no changes in walking other than feeling dizzy. Pre documentation review had COVID in February of 2023 and suffered near syncope during March 2023 at which time underwent Cardiology consultation and ECHO revealed mitral valve prolapse. She is scheduled for stress test in August of this year. She has undergone CT brain without contrast as well as CTA head and neck. Imaging review reveals approx 1mm saccular aneurysm Left Pcomm. No other evidence suggestive of acute pathology. No evidence suggestive of vertebrobasilar insufficiency. She has also undergone MRI brain with and without contrast depicting no evidence of acute ischemic stroke or pathological enhancement. I have performed televideo consultation. She is alert & oriented; able to answer all questions appropriately, name objects on televideo monitor, repeat phrases and perform complex/embedded commands without deficit. Neurological exam reveals RLE weakness/drift. She denies changes in sensation. No reported trauma. No evidence of Lhermitte's or Uhthoff's phenomenon. Denies painful EOM. She does report MS in her Maternal Aunt. Allergies Allergy/AdvReac Type Severity Reaction Status Date / Time adhesive Allergy Unknown ADHESIVE Verified 07/14/23 20:07 TAPE CAUSES RASH midazolam AdvReac Unknown PARADOXICAL Verified 07/14/23 20:07 REACTION-STAYS AWAKE propranolol AdvReac Unknown CHEST PAIN Verified 07/14/23 20:07 Home Medications Medication Instructions Recorded Confirmed Type albuterol sulfate 2.5 mg/3 mL See Rx Instructions inhalation 10/25/18 07/14/23 History (0.083 %) solution for nebulization .COMPLEX PRN Wheezing atenolol 50 mg tablet (Tenormin) 75 mg PO QPM 10/25/18 07/14/23 History beclomethasone dipropionate 40 0 mcg inhalation BID PRN Shortness 10/25/18 07/14/23 History mcg/actuation aerosol inhaler Of Breath Or Wheezing calcium carbonate-vitamin D3 1 tab PO QAM 10/25/18 07/14/23 History [Caltrate 600 plus D] cetirizine 10 mg capsule (Zyrtec) 10 mg PO HS 10/25/18 07/14/23 History digoxin 125 mcg (0.125 mg) tablet 125 mcg PO HS 10/25/18 07/14/23 History lactobacillus combination no.8 1 tab PO HS 10/25/18 07/14/23 History [Adult Probiotic] multivitamin 1 tab PO QAM 10/25/18 07/14/23 History omeprazole 40 mg capsule,delayed 40 mg PO QAM 10/25/18 07/14/23 History release ondansetron HCl 4 mg tablet 4 mg PO .COMPLEX PRN nausea 10/25/18 07/14/23 Hist ory zinc 50 mg tablet 50 mg PO QAM 10/25/18 07/14/23 History montelukast 10 mg tablet 10 mg PO QAM 04/13/19 07/14/23 History (Singulair) famotidine 20 mg tablet (Pepcid) 20 mg PO HS 04/25/20 07/14/23 History bupropion HCl 150 mg 24 hr tablet, 150 mg PO QPM 02/26/21 07/14/23 History extended release (Wellbutrin XL) albuterol sulfate 90 mcg/actuation 2 inh inhalation QID PRN Wheezing 12/25/21 07/14/23 History aerosol inhaler cholecalciferol (vitamin D3) 50 50 mcg PO QAM 12/25/21 07/14/23 History mcg (2,000 unit) capsule (Vitamin D3) tiotropium 2.5 mcg-olodaterol 2.5 2 puff inhalation QAM 12/25/21 07/14/23 History mcg/actuation mist for inhalation (Stiolto Respimat) triamcinolone acetonide 55 mcg 2 spray intranasal DAILY 06/25/23 07/14/23 His tory nasal spray aerosol atenolol 50 mg tablet 100 mg PO QAM 07/14/23 07/14/23 History azelastine 137 mcg (0.1 %) nasal 2 spray intranasal BID 07/14/23 07/14/23 History spray aerosol vitamin B complex 1 tab PO DAILY 07/14/23 07/14/23 History Patient History Medical History Obesity Depression Migraine headache Asthma Atypical nevus Chronic GERD Chronic sinusitis Hyperlipidemia Irritable bowel syndrome Mitral valve prolapse Sinus tachycardia Surgical History History of carpal tunnel release Nausea and vomiting after administration of anesthetic agent History of esophagogastroduodenoscopy (EGD) History of laparoscopy H/O shoulder surgery Family History Mother Cardiac disorder Allergy Asthma Family history of diabetes mellitus Father Asthma Brother Asthma Grandfather (Maternal) Hypertension Stroke Aunt Breast cancer Grandfather (Paternal) Myocardial infarction Uncle Prostate cancer Denies family history of Ovarian cancer Colorectal cancer Social History Smoking Status: Never smoker Second Hand Exposure: No; Do You Dip or Chew Tobacco: No; Hx Alcohol Use: Yes Alcohol type: wine Hx Substance Use: No Preferred Language: [place] Communication Ability: Effective 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 Oriented to person, place, and time. Fluency naming repetition and comprehension appear grossly intact. Affect remains appropriate. CN testing: I: Denies changes in ability to smell II:Reports no changes in visual acuity III/IV/: No evidence of gaze preference, hippus, nystagmus or roving eye movements V: Facial sensation reportedly grossly intact to light touch bilaterally VII: Facial movements appear without evidence of asymmetry VIII: Hearing appears grossly intact to loud voice bilaterally IX/X: Palate appears to elevate symmetrically XI: Shoulder shrug appears symmetric/ grossly intact bilaterally XII: Tongue protrudes midline without evidence of biting Motor exam:RLE monoparesis Sensory: Sensation is reportedly grossly intact throughout Coordination: Finger to nose and heel to patricio were intact. No apparent evidence of dysmetria or dysdiadochokinesia Reflexes: Deferred Gait: Deferred Results & Data Vital Signs (Past 12 Hours) Vital Signs Temp Pulse Pulse Resp BP Pulse Ox Pulse Ox 07/15/23 11:52 36.6 C 91 H 12 132/88 94 07/15/23 08:28 95 H 07/15/23 07:41 95 07/15/23 07:38 36.5 C 97 H 12 135/87 95 07/15/23 02:24 36.8 C 101 H 16 135/82 94 07/15/23 02:18 36.8 C 101 H 16 135/82 94 O2 Del Method O2 Del Method 07/15/23 11:52 Room Air 07/15/23 08:28 07/15/23 07:41 Room Air 07/15/23 07:38 Room Air 07/15/23 02:24 Room Air 07/15/23 02:18 Room Air Laboratory Results Abnormal lab results 07/14/23 07/14/23 07/15/23 Range/Units 19:05 19:12 07:39 WBC 14.12 H (4.8-10.8) K/ul Neut # (Auto) 11.33 H 6.79 H (1.40-6.50) K/uL Pershing # (Auto) 0.93 H 0.88 H (0.11-0.59) K/uL ESR 48 H (0-20) mm/hr Glucose 130 H 107 H (70-99(Fasting)) mg/dl POC Glucose (other) 128 H (70-99) mg/dl C-Reactive Protein 0.72 H (0-0.5) mg/dl Total Protein 8.5 H (6.0-8.3) gm/dl Albumin 5.1 H (3.4-5.0) gm/dl Diagnostic Findings Chest X-Ray 07/14/23 18:56 SINGLE VIEW CHEST CLINICAL HISTORY: Dizziness. FINDINGS: An AP, portable, upright chest radiograph is compared to study dated 07/02/2023. The cardiomediastinal silhouette is top normal for projection. There is mild bibasilar atelectasis. The lungs and pleural spaces are otherwise clear. No pneumothorax is seen. The bony thorax is grossly intact. Postoperative change is seen along the left humeral shaft. IMPRESSION: No acute cardiopulmonary abnormality. ACT 112: Negative or not required by law. Electronically signed by: Rafael Chen M.D. 07/14/2023 7:41 PM Head CTA 07/14/23 19:11 Exam(s): CTA HEAD With Contrast IV Amt: 119 cc opti 320 EXAM: CT Angiography Head With Intravenous Contrast CLINICAL HISTORY: Reason for exam: vertigo. TECHNIQUE: Axial computed tomographic angiography images of the head with intravenous contrast. CTDI is 14.53 mGy and DLP is 7.27 mGy-cm. Automated exposure control was utilized for the study. A dose lowering technique was utilized adhering to the principles of ALARA. MIP reconstructed images were created and reviewed. CONTRAST: Patient received 119 cc opti 320 of IV contrast COMPARISON: No relevant prior studies available. FINDINGS: Right internal carotid artery: No acute findings. Intracranial segment is patent with no significant stenosis. No aneurysm. Right anterior cerebral artery: Unremarkable. No occlusion or significant stenosis. No aneurysm. Right middle cerebral artery: Unremarkable. No occlusion or significant stenosis. No aneurysm. Right posterior cerebral artery: Unremarkable. No occlusion or significant stenosis. No aneurysm. Right vertebral artery: Unremarkable as visualized. Left internal carotid artery: No acute findings. Intracranial segment is patent with no significant stenosis. No aneurysm. Left anterior cerebral artery: Unremarkable. No occlusion or significant stenosis. No aneurysm. Left middle cerebral artery: Unremarkable. No occlusion or significant stenosis. No aneurysm. 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 No occlusion or significant stenosis. Left vertebral artery: Unremarkable as visualized. Basilar artery: Unremarkable. No occlusion or significant stenosis. No aneurysm. IMPRESSION: No large vessel intracranial occlusion. 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 Electronically signed by: Marcin Mclain M.D. 07/14/23 21:03 PM Neck CTA 07/14/23 19:11 Exam(s): CTA NECK With Contrast IV Amt: 119 cc opti 320 EXAM: CT Angiography Neck With Intravenous Contrast CLINICAL HISTORY: Reason for exam: vertigo. TECHNIQUE: Routine carotid CT angiography protocol was performed with intravenous contrast. NASCET criteria using the distal ICAs for comparison were used for evaluation of stenoses. CTDI is 13.5 mGy and DLP is 550.7 mGy-cm. Automated exposure control was utilized for the study. A dose lowering technique was utilized adhering to the principles of ALARA. MIP reconstructed images were created and reviewed. CONTRAST: Patient received 119 cc opti 320 of IV contrast COMPARISON: None. FINDINGS: VASCULATURE: Right common carotid artery: Unremarkable. No occlusion or significant stenosis. No dissection. Right internal carotid artery: Unremarkable. Extracranial segment is patent with no occlusion or significant stenosis. No dissection. Right external carotid artery: Unremarkable. No occlusion. Right vertebral artery: Unremarkable. No occlusion or significant stenosis. No dissection. Left common carotid artery: Unremarkable. No occlusion or significant stenosis. No dissection. Left internal carotid artery: Unremarkable. Extracranial segment is patent with no occlusion or significant stenosis. No dissection. Left external carotid artery: Unremarkable. No occlusion. Left vertebral artery: Unremarkable. No occlusion or significant stenosis. No dissection. NECK: Bones/joints: Unremarkable. No acute fracture. Soft tissues: Unremarkable. Sinuses: Mucus retention cysts within the right maxillary sinus with mild mucosal thickening. Lung apices: Clear. CAROTID STENOSIS REFERENCE USING NASCET CRITERIA: % ICA stenosis = (1 - narrowest ICA diameter/diameter of distal cervical ICA) x 100. Mild - <50% stenosis. Moderate - 50-69% stenosis. Severe - 70-94% stenosis. Near occlusion - 95-99% stenosis. Occluded - 100% stenosis. IMPRESSION: No acute findings in the arteries of the neck. Electronically signed by: Marcin Mclain M.D. 07/14/23 21:[address] 07/14/23 19:14 Exam(s): CT HEAD Without Contrast EXAM: CT Head Without Intravenous Contrast CLINICAL HISTORY: Reason for exam: vertigo. TECHNIQUE: Axial computed tomography images of the head/brain without intravenous contrast. CTDI is 31.65 mGy and DLP is 512.02 mGy-cm. Automated exposure control was utilized for the study. A dose lowering technique was utilized adhering to the principles of ALARA. COMPARISON: No relevant prior studies available. FINDINGS: Brain: Unremarkable. No hemorrhage. No significant white matter disease. No edema. Ventricles: Unremarkable. No ventriculomegaly. Bones/joints: Unremarkable. No acute fracture. Soft tissues: Unremarkable. Sinuses: Unremarkable as visualized. No acute sinusitis. Mastoid air cells: Unremarkable as visualized. No mastoid effusion. IMPRESSION: Normal head/brain CT. Electronically signed by: Marcin Mclain M.D. 07/14/23 20:52 PM Brain MRI 07/14/23 21:16 Exam(s): MRI HEAD W/WO Contrast IV Amt: 10 CC REA EXAM: MR Head Without and With Intravenous Contrast CLINICAL HISTORY: Reason for exam: severe vertigo. TECHNIQUE: Magnetic resonance images of the head/brain without and with intravenous contrast in multiple planes. CONTRAST: Patient received 10 CC REA of IV contrast COMPARISON: No relevant prior studies available. FINDINGS: Brain: Unremarkable. No mass. No hemorrhage. No acute infarct. Ventricles: Unremarkable. No ventriculomegaly. Bones/joints: Unremarkable. No acute fracture. Sinuses: 1.8 cm mucus retention cyst in the right maxillary sinus. No acute sinusitis. Mastoid air cells: Unremarkable as visualized. No mastoid effusion. Orbits: Unremarkable as visualized. IMPRESSION: No acute findings in the head/brain. Electronically signed by: Marcin Mclain M.D. 07/14/23 23:17 PM Medications Administered Home Medications Medication Instructions Recorded Confirmed Last Taken albuterol sulfate 2.5 mg/3 mL See Rx Instructions inhalation 10/25/18 07/14/23 Unknown (0.083 %) solution for nebulization .COMPLEX PRN Wheezing atenolol 50 mg tablet (Tenormin) 75 mg PO QPM 10/25/18 07/14/23 01/15/22 beclomethasone dipropionate 40 0 mcg inhalation BID PRN Shortness 10/25/18 07/14/23 01/01/22 mcg/actuation aerosol inhaler Of Breath Or Wheezing calcium carbonate-vitamin D3 1 tab PO QAM 10/25/18 07/14/23 01/15/22 [Caltrate 600 plus D] cetirizine 10 mg capsule (Zyrtec) 10 mg PO HS 10/25/18 07/14/23 01/15/22 digoxin 125 mcg (0.125 mg) tablet 125 mcg PO HS 10/25/18 07/14/23 01/15/22 lactobacillus combination no.8 1 tab PO HS 10/25/18 07/14/23 01/15/22 [Adult Probiotic] multivitamin 1 tab PO QAM 10/25/18 07/14/23 01/15/22 omeprazole 40 mg capsule,delayed 40 mg PO QAM 10/25/18 07/14/23 01/16/22 07:30 release ondansetron HCl 4 mg tablet 4 mg PO .COMPLEX PRN nausea 10/25/18 07/14/23 Unknown zinc 50 mg tablet 50 mg PO QAM 10/25/18 07/14/23 01/15/22 montelukast 10 mg tablet 10 mg PO QAM 04/13/19 07/14/23 01/16/22 07:30 (Singulair) famotidine 20 mg tablet (Pepcid) 20 mg PO HS 04/25/20 07/14/23 01/15/22 bupropion HCl 150 mg 24 hr tablet, 150 mg PO QPM 02/26/21 07/14/23 01/15/22 extended release (Wellbutrin XL) albuterol sulfate 90 mcg/actuation 2 inh inhalation QID PRN Wheezing 12/25/21 07/14/23 01/01/22 aerosol inhaler cholecalciferol (vitamin D3) 50 50 mcg PO QAM 12/25/21 07/14/23 01/15/22 mcg (2,000 unit) capsule (Vitamin D3) tiotropium 2.5 mcg-olodaterol 2.5 2 puff inhalation QAM 12/25/21 07/14/23 01/16/22 07:30 mcg/actuation mist for inhalation (Stiolto Respimat) triamcinolone acetonide 55 mcg 2 spray intranasal DAILY 06/25/23 07/14/23 Unknown nasal spray aerosol atenolol 50 mg tablet 100 mg PO QAM 07/14/23 07/14/23 Unknown azelastine 137 mcg (0.1 %) nasal 2 spray intranasal BID 07/14/23 07/14/23 Unknown spray aerosol vitamin B complex 1 tab PO DAILY 07/14/23 07/14/23 Unknown Active Medications Generic Name Dose Route Start Last Admin Trade Name Freq PRN Reason Stop Dose Admin Atenolol 100 mg 07/15/23 09:00 07/15/23 09:50 Atenolol 50 Mg Tablet PO 08/14/23 08:59 100 mg QAM BENJAMÍN Administration Diazepam 5 mg 07/15/23 07:46 07/15/23 08:02 Diazepam 5 Mg Tablet PO 08/14/23 07:45 5 mg BID PRN Administration Vertigo Sodium Chloride 1,000 mls @ 125 mls/hr 07/15/23 02:10 07/15/23 11:12 Nss IV 07/16/23 02:09 125 mls/hr .Q8H BENJAMÍN Administration Promethazine HCl 12.5 mg/ 50.5 mls @ 202 mls/hr 07/15/23 02:10 07/15/23 11:08 Sodium Chloride IV 08/14/23 02:09 202 mls/hr Q6H PRN Administration Nausea And Vomiting Meclizine HCl 25 mg 07/15/23 08:02 07/15/23 11:50 Meclizine Hcl 25 Mg Tab PO 08/14/23 08:01 25 mg Q8H PRN Administration Vertigo Montelukast Sodium 10 mg 07/15/23 09:00 07/15/23 09:51 Montelukast Sodium 10 Mg Tablet PO 08/14/23 08:59 10 mg QAM BENJAMÍN Administration Ondansetron HCl 4 mg 07/15/23 02:10 07/15/23 07:48 Ondansetron Inj 2 Mg/Ml 2 Ml Vial IV 08/14/23 02:09 4 mg Q6H PRN Administration Nausea Pantoprazole Sodium 40 mg 07/15/23 09:00 07/15/23 09:51 Pantoprazole 40 Mg Tab PO 08/14/23 08:59 40 mg QAM BENJAMÍN Administration
[2023-07-15] MEDS: AZELASTINE HCL 0.1% NASAL 200 SPRAYS/27,400 MCG BTL SCH (15:22)
[2023-07-15] MEDS: CALCIUM 600MG + VIT D 400 IU TAB PO SCH (15:23)
[2023-07-15] MEDS: MULTIVITAMIN TAB PO SCH (15:23)
[2023-07-15] MEDS: FLUTICASONE PROPIONATE NA SPR 16 GM BTL SCH (15:23)
[2023-07-15] MEDS: ZINC SULFATE 220 MG CAPSULE PO SCH (15:24)
[2023-07-15] MEDS: UMECLIDINIUM/VILANTEROL 62.5/25MCG 7 PUFFS/INHALER INH SCH (15:24)
[2023-07-15] MEDS: VITAMIN B COMPLEX TAB PO SCH (15:24)
[2023-07-15] MEDS: ENOXAPARIN INJ 40 MG/0.4 ML SYR SQ SCH (16:08)
--- NOTE | 2023-07-15 17:18 | Hospitalist Progress Note ---
Date of Service July 15, 2023 Assessment & Plan (1) Dizziness: Plan: 43-year-old female with past med history significant for hypertension, moderate persistent asthma, mixed rhinitis, mitral valve prolapse, sinus tachycardia, irritable bowel syndrome, gastroparesis, GERD, migraines presents with Ongoing vertigo for last 2 weeks. Initially meclizine seemed to help but lately it is not helping. Also having right upper extremity tremor for some time. And lately developed some weakness in right lower extremity.Today was having significant dizziness nausea and vomiting. No headaches. No fevers. Lights bothering her. No chest pain or shortness of breath. No abdominal pain. Normal bowel and bladder movements. Hemodynamics are okay. Patient has had COVID in February 2003 and in March 2023 had had a near syncopal episode and having chest burning and dyspnea on exertion. Seen by cardiology and had echocardiogram which showed showed mild mitral valve prolapse and also had Holter which showed inappropriate sinus tachycardia. Patient is on atenolol. Plan for Stress Test in August 2023. Severe dizziness/vertigo Nausea and vomiting likely due to above Ambulatory dysfunction secondary to above H/O migraine DD: Hemiplegic migraine --CTA head and neck no acute findings except for 1 mm saccular aneurysm arising of the left posterior cerebral artery at the junction of the P1 and P2 arteries --MRI brain:No acute findings in the head/brain. 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 Incidental finding on CT Will need repeat CT as outpatient for monitoring H/O Inappropriate sinus tachycardia On atenolol and digoxin Follows with cardiology Plan for stress test as outpatient Moderate persistent asthma Mixed rhinitis No signs of exacerbation Continue home meds monitor Hypertension continue atenolol monitor GERD On famotidine and PPI DVT prophylaxis Lovenox SQ CODE STATUS Full code Admission and Anticipated Discharge Date Admission Date: July 15, 2023 Subjective Patient is seen and examined at bedside States having dizziness Also reports generalized weakness associated with ambulatory dysfunction/balance issues Discussed with neurology today Reports right leg weakness Denies any chest pain, dyspnea, nausea, vomiting, headache, change in vision Review of Systems Review of Systems: All systems reviewed & are unremarkable except as noted in Subjective Physical Exam Physical Exam: Physical Exam: Vitals signs as noted above General Appearance:Moderately built and nourished, no apparent distress Head: normocephalic, Atraumatic Eyes: normal inspection, EOMI Neck: supple, Trachea midline Respiratory/Chest: Normal breath sounds, CTA, No accessory muscle use Cardiovascular: S1, S2, No murmur Abdomen/GI:Soft, Non tender, Bowel sounds present Extremities/Musculoskeletal:normal inspection, no edema Neurologic/Psych:AAOX3, RLE 4/5 otherwise no other obvious focal deficits Skin: normal color, warm Results & Data Results & Data Vital Signs (Past 12 Hours) Vital Signs Temp Pulse Pulse Resp BP Pulse Ox Pulse Ox 07/15/23 16:29 84 07/15/23 15:51 36.8 C 82 16 134/83 94 07/15/23 11:52 36.6 C 91 H 12 132/88 94 07/15/23 08:28 95 H 07/15/23 07:41 95 07/15/23 07:38 36.5 C 97 H 12 135/87 95 O2 Del Method O2 Del Method 07/15/23 16:29 07/15/23 15:51 Room Air 07/15/23 11:52 Room Air 07/15/23 08:28 07/15/23 07:41 Room Air 07/15/23 07:38 Room Air Laboratory Results Short CBC 07/14/23 07/15/23 Range/Units 19:05 07:39 WBC 14.12 H 10.17 (4.8-10.8) K/ul Hgb 14.6 13.7 (12.0-16.0) g/dl Hct 44.5 40.9 (37.0-47.0) % Plt Count 314 293 (130-400) K/uL BMP 07/14/23 07/15/23 19:05 07:39 Sodium 138 139 Potassium 4.1 4.0 Chloride 102 106 Carbon Dioxide 25 24 BUN 9 9 Creatinine 0.86 0.73 Glucose 130 H 107 H Calcium 10.3 9.8 Liver Function 07/14/23 Range/Units 19:05 Total Bilirubin 0.4 (0.2-1.0) mg/dl AST 22 (13-39) U/L ALT 30 (7-52) U/L Alkaline Phosphatase 84 (34-104) U/L Albumin 5.1 H (3.4-5.0) gm/dl
[2023-07-15] MEDS: ACETAMINOPHEN 325 MG TAB PO PRN (20:51)
[2023-07-15] MEDS: buPROPion XL 150 MG TABCR PO SCH (20:52)
[2023-07-15] MEDS: CETIRIZINE HCL 10 MG TABLET PO SCH (20:52)
[2023-07-15] MEDS: DIGOXIN 0.125 MG TAB PO SCH (20:52)
[2023-07-15] MEDS: ADVANCED PROBIOTIC 625 MG CAPSULE PO SCH (20:53)
[2023-07-15] MEDS: ATENOLOL 25 MG TABLET PO SCH (20:53)
[2023-07-15] MEDS: FAMOTIDINE 20 MG TAB PO SCH (20:53)
[2023-07-15] MEDS: GADOBUTROL 65ML VIAL IV ONE (23:45)
--- NOTE | 2023-07-16 01:31 | Magnetic Resonance Report ---
Exam(s): MRI L SPINE W/WO Contrast IV Amt: 9.5cc gadavist EXAM: MR Lumbar Spine Without and With Intravenous Contrast CLINICAL HISTORY: Reason for exam: Stroke like symptoms. TECHNIQUE: Magnetic resonance images of the lumbar spine without and with intravenous contrast in multiple planes. CONTRAST: Patient received 9.5cc Gadavist of IV contrast COMPARISON: No relevant prior studies available. FINDINGS: Vertebrae: Normal, smooth curvature. No listhesis, marrow edema or compression deformity. No discitis or osteomyelitis. No abnormal enhancement. Spinal cord: Unremarkable. Normal signal. No abnormal enhancement. Soft tissues: Unremarkable. No retroperitoneal masses or abnormal enhancement. DISCS/SPINAL CANAL/NEURAL FORAMINA: L1-L2: Unremarkable. No significant disc disease. No stenosis. L2-L3: Unremarkable. No significant disc disease. No stenosis. L3-L4: Unremarkable. No significant disc disease. No stenosis. L4-L5: Unremarkable. No significant disc disease. No stenosis. L5-S1: Loss of signal, small leftward annular tear and mild diffuse disc bulge. No stenosis. S1-S2: Rudimentary disc. Transitional vertebral segmentation. Numbering may vary between observers. Other: Mild facet hypertrophy. No abnormal enhancement. No disc herniation or central spinal stenosis. IMPRESSION: 1. Mild degenerative disc disease in the lower lumbar spine. 2. Remaining discs are well preserved for this age group. 3. No abnormal enhancement, disc herniation or central spinal stenosis. Electronically signed by: Valery Sanches M.D. 07/16/23 01:30 AM
--- NOTE | 2023-07-16 01:33 | Magnetic Resonance Report ---
Exam(s): MRI C SPINE IV Amt: 9.5cc gadavist EXAM: MR Cervical Spine With Intravenous Contrast CLINICAL HISTORY: Reason for exam: Stroke like symptoms. Nausea while standing. Lower extremity weakness, vertigo and vomiting. TECHNIQUE: Magnetic resonance images of the cervical spine with intravenous contrast in multiple planes. CONTRAST: Patient received 9.5cc Gadavist of IV contrast COMPARISON: CTA neck 07/14/23. FINDINGS: Vertebrae: Normal, smooth curvature. No marrow edema or compression deformity. No discitis or osteomyelitis. Spinal cord: No abnormal signal or abnormal enhancement. Soft tissues: No mass or abnormal enhancement. No interspinous ligamentous edema or prevertebral edema. No epidural fluid collection. DISCS/SPINAL CANAL/NEURAL FORAMINA: C2-C3: Unremarkable. C3-C4: Unremarkable. C4-C5: Unremarkable. C5-C6: Unremarkable. C6-C7: Unremarkable. C7-T1: Unremarkable. OTHER: No disc herniation or central spinal stenosis. No significant disc space narrowing. Facet joints are well preserved. No abnormal enhancement. IMPRESSION: 1. Normal exam. 2. No abnormal enhancement, disc herniation, spinal stenosis or abnormal cord signal. Electronically signed by: Valery Sanches M.D. 07/16/23 01:32 AM
--- NOTE | 2023-07-16 01:33 | Magnetic Resonance Report ---
Exam(s): MRI T SPINE W/WO Contrast IV Amt: gativest 9.5cc EXAM: MR Thoracic Spine Without and With Intravenous Contrast CLINICAL HISTORY: Reason for exam: Stroke like symptoms. TECHNIQUE: Magnetic resonance images of the thoracic spine without and with intravenous contrast in multiple planes. CONTRAST: Patient received Gadavist 9.5cc of IV contrast COMPARISON: No relevant prior studies available. FINDINGS: Vertebrae: Unremarkable. Normal curvature. No marrow edema or compression deformity. No discitis or osteomyelitis. Discs/spinal canal/neural foramina: No disc herniation or central spinal stenosis. No significant degenerative disc disease. Spinal cord: Unremarkable. Normal signal. No abnormal enhancement. Soft tissues: Unremarkable. No epidural fluid collection or abscess. IMPRESSION: 1. Normal exam for this age group. 2. No abnormal enhancement, mass, abnormal cord signal, disc herniation or spinal stenosis. Electronically signed by: Valery Sanches M.D. 07/16/23 01:32 AM
[2023-07-16 06:33] LABS: Hematocrit (blood only) 38.3 % (37.0-47.0); Mean Corpuscular Hemoglobin 28.2 pg (25.0-34.0); Mean Corpuscular Hgb Conc 33.9 g/dL (32.0-36.0); Mean Corpuscular Volume 83.1 fL (80.0-100.0); Mean Platelet Volume 10.6 fL (9.4-12.4); Platelet Count 259 K/uL (130-400); RDW Coefficient of Variation 12.7 % (11.5-14.5); RDW Standard Deviation 38.5 fL (36.4-46.3); Red Blood Count 4.61 M/uL (4.20-5.40); White Blood Count 7.18 K/ul (4.8-10.8)
[2023-07-16 06:53] LABS: BUN Creatinine Ratio 11.7 (10-20); Calcium 9.3 mg/dl (8.6-10.3); Chol HDL Ratio 4.8 (0-5); Creatinine Clr Calc Pharmacy 118.9 ml/min; Est GFR (African American) 111.2 ml/min; Est GFR (Non-African American) 95.9 ml/min; Potassium 3.9 mmol/L (3.5-5.1)
[2023-07-16 06:54] LABS: D Dimer 230 ug/L FEU (0-500)
[2023-07-16 07:07] LABS: Thyroid Stimulating Hormone 4.397 uIu/ml (0.300-4.500)
[2023-07-16 07:13] LABS: Estimated Average Glucose 128 mg/dl; Hemoglobin A1C 6.1 % (4.5-5.6)
[2023-07-16] MEDS: ALBUTEROL HFA 8 GM INHALER INH PRN (08:05)
--- NOTE | 2023-07-16 11:23 | Communication Note ---
Date of Service: July 16, 2023 EMR reviewed MRI of complete neuraxis is unrevealing for significant pathology Continue current therapies Monitor treat symptoms Follow up outpatient with Adult Neurology Recommend continued surveillance of incidental Pcomm aneurysm Recommend outpatient ENT evaluation
[2023-07-16] MEDS: MECLIZINE HCL 25 MG TAB PO PRN (14:11)
--- NOTE | 2023-07-16 17:50 | Hospitalist Progress Note ---
Date of Service July 16, 2023 Assessment & Plan (1) Dizziness: Plan: 43-year-old female with past med history significant for hypertension, moderate persistent asthma, mixed rhinitis, mitral valve prolapse, sinus tachycardia, irritable bowel syndrome, gastroparesis, GERD, migraines presents with Ongoing vertigo for last 2 weeks. Initially meclizine seemed to help but lately it is not helping. Also having right upper extremity tremor for some time. And lately developed some weakness in right lower extremity.Today was having significant dizziness nausea and vomiting. No headaches. No fevers. Lights bothering her. No chest pain or shortness of breath. No abdominal pain. Normal bowel and bladder movements. Hemodynamics are okay. Patient has had COVID in February 2003 and in March 2023 had had a near syncopal episode and having chest burning and dyspnea on exertion. Seen by cardiology and had echocardiogram which showed showed mild mitral valve prolapse and also had Holter which showed inappropriate sinus tachycardia. Patient is on atenolol. Plan for Stress Test in August 2023. Severe dizziness/vertigo Nausea and vomiting likely due to above Ambulatory dysfunction secondary to above H/O migraine DD: BPPV, Hemiplegic migraine Admits to undergoing through lot of stress lately --CTA head and neck no acute findings except for 1 mm saccular aneurysm arising of the left posterior cerebral artery at the junction of the P1 and P2 arteries --MRI brain:No acute findings in the head/brain. -- MRI thoracic, cervical, lumbar spine pending --Cervical spine MRI:Normal exam. No abnormal enhancement, disc herniation, spinal stenosis or abnormal cord signal. --Lumbar spine MRI:Mild degenerative disc disease in the lower lumbar spine. Remaining discs are well preserved for this age group.No abnormal enhancement, disc herniation or central spinal stenosis. --Thoracic spine MRI:Normal exam for this age group.. No abnormal enhancement, mass, abnormal cord signal, disc herniation or spinal stenosis. --ECHO: Mild concentric LVH. Left ventricle wall motion normal. Left ventricle systolic function normal. EF 60 to 65%. All chamber sizes are normal. No valvular disease. 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 Incidental finding on CT Will need repeat CT as outpatient for monitoring H/O Inappropriate sinus tachycardia On atenolol and digoxin Follows with cardiology Plan for stress test as outpatient Prediabetes HbA1c 6.1 Hypertriglyceridemia Known history Lifestyle changes Follow-up as outpatient Moderate persistent asthma Mixed rhinitis No signs of exacerbation Continue home meds monitor Hypertension continue atenolol monitor GERD On famotidine and PPI DVT prophylaxis Lovenox SQ CODE STATUS Full code Admission and Anticipated Discharge Date Admission Date: July 15, 2023 Subjective Patient is seen and examined at bedside Dizziness, nausea improving Right leg weakness improving as well No new complaints Discussed with patient's family at bedside Denies any chest pain, dyspnea, nausea, vomiting, headache, change in vision Review of Systems Review of Systems: All systems reviewed & are unremarkable except as noted in Subjective Physical Exam Physical Exam: Physical Exam: Vitals signs as noted above General Appearance:Moderately built and nourished, no apparent distress Head: normocephalic, Atraumatic Eyes: normal inspection, EOMI Neck: supple, Trachea midline Respiratory/Chest: Normal breath sounds, CTA, No accessory muscle use Cardiovascular: S1, S2, No murmur Abdomen/GI:Soft, Non tender, Bowel sounds present Extremities/Musculoskeletal:normal inspection, no edema Neurologic/Psych:AAOX3, RLE 4/5 otherwise no other obvious focal deficits Skin: normal color, warm Results & Data Results & Data Vital Signs (Past 12 Hours) Vital Signs Temp Pulse Pulse Resp BP BP Pulse Ox 07/16/23 15:52 36.6 C 94 H 18 139/88 91 07/16/23 15:00 92 H 07/16/23 11:29 36.7 C 77 18 133/83 96 07/16/23 08:14 90 16 98 07/16/23 08:00 07/16/23 07:49 36.7 C 84 17 144/89 H 93 07/16/23 07:00 83 O2 Del Method 07/16/23 15:52 Room Air 07/16/23 15:00 07/16/23 11:29 Room Air 07/16/23 08:14 Room Air 07/16/23 08:00 Room Air 07/16/23 07:49 Room Air 07/16/23 07:00 Laboratory Results Short CBC 07/16/23 Range/Units 06:09 WBC 7.18 (4.8-10.8) K/ul Hgb 13.0 (12.0-16.0) g/dl Hct 38.3 (37.0-47.0) % Plt Count 259 (130-400) K/uL [facility] 07/16/23 06:09 Sodium 139 Potassium 3.9 Chloride 106 Carbon Dioxide 25 BUN 9 Creatinine 0.77 Glucose 89 Calcium 9.3
[2023-07-17] MEDS: ASPIRIN 81 MG ECTAB PO SCH (16:03)
--- NOTE | 2023-07-17 16:56 | Hospitalist Progress Note ---
Date of Service July 17, 2023 Assessment & Plan (1) Dizziness: Plan: 43-year-old female with past med history significant for hypertension, moderate persistent asthma, mixed rhinitis, mitral valve prolapse, sinus tachycardia, irritable bowel syndrome, gastroparesis, GERD, migraines presents with Ongoing vertigo for last 2 weeks. Initially meclizine seemed to help but lately it is not helping. Also having right upper extremity tremor for some time. And lately developed some weakness in right lower extremity.Today was having significant dizziness nausea and vomiting. No headaches. No fevers. Lights bothering her. No chest pain or shortness of breath. No abdominal pain. Normal bowel and bladder movements. Hemodynamics are okay. Patient has had COVID in February 2003 and in March 2023 had had a near syncopal episode and having chest burning and dyspnea on exertion. Seen by cardiology and had echocardiogram which showed showed mild mitral valve prolapse and also had Holter which showed inappropriate sinus tachycardia. Patient is on atenolol. Plan for Stress Test in August 2023. Severe dizziness/vertigo Nausea and vomiting likely due to above Ambulatory dysfunction secondary to above H/O migraine DD: BPPV, Hemiplegic migraine Admits to undergoing through lot of stress lately --CTA head and neck no acute findings except for 1 mm saccular aneurysm arising of the left posterior cerebral artery at the junction of the P1 and P2 arteries --MRI brain:No acute findings in the head/brain. -- MRI thoracic, cervical, lumbar spine pending --Cervical spine MRI:Normal exam. No abnormal enhancement, disc herniation, spinal stenosis or abnormal cord signal. --Lumbar spine MRI:Mild degenerative disc disease in the lower lumbar spine. Remaining discs are well preserved for this age group.No abnormal enhancement, disc herniation or central spinal stenosis. --Thoracic spine MRI:Normal exam for this age group.. No abnormal enhancement, mass, abnormal cord signal, disc herniation or spinal stenosis. --ECHO: Mild concentric LVH. Left ventricle wall motion normal. Left ventricle systolic function normal. EF 60 to 65%. All chamber sizes are normal. No valvular disease. 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 Incidental finding on CT Will need repeat CT as outpatient for monitoring H/O Inappropriate sinus tachycardia On atenolol and digoxin Follows with cardiology Plan for stress test as outpatient Prediabetes HbA1c 6.1 Hypertriglyceridemia Known history Lifestyle changes Follow-up as outpatient Moderate persistent asthma Mixed rhinitis No signs of exacerbation Continue home meds monitor Hypertension continue atenolol monitor GERD On famotidine and PPI DVT prophylaxis Lovenox SQ CODE STATUS Full code Admission and Anticipated Discharge Date Admission Date: July 15, 2023 Subjective Patient is seen and examined at bedside Dizziness, balance issues much improved Had PT evaluation today No new complaints Right leg weakness continues to improve Discussed with patient's family at bedside Denies any chest pain, dyspnea, nausea, vomiting, headache, change in vision Review of Systems Review of Systems: All systems reviewed & are unremarkable except as noted in Subjective Physical Exam Physical Exam: Physical Exam: Vitals signs as noted above General Appearance:Moderately built and nourished, no apparent distress Head: normocephalic, Atraumatic Eyes: normal inspection, EOMI Neck: supple, Trachea midline Respiratory/Chest: Normal breath sounds, CTA, No accessory muscle use Cardiovascular: S1, S2, No murmur Abdomen/GI:Soft, Non tender, Bowel sounds present Extremities/Musculoskeletal:normal inspection, no edema Neurologic/Psych:AAOX3, RLE 4/5 otherwise no other obvious focal deficits Skin: normal color, warm Results & Data Results & Data Vital Signs (Past 12 Hours) Vital Signs Temp Pulse Pulse Resp BP Pulse Ox Pulse Ox 07/17/23 16:44 97 H 07/17/23 15:47 36.6 C 91 H 16 134/81 94 07/17/23 12:08 36.3 C L 85 16 124/83 93 07/17/23 08:25 07/17/23 08:25 96 07/17/23 07:59 36.7 C 81 16 128/82 96 07/17/23 07:24 80 O2 Del Method O2 Del Method 07/17/23 16:44 07/17/23 15:47 Room Air 07/17/23 12:08 Room Air 07/17/23 08:25 Room Air 07/17/23 08:25 Room Air 07/17/23 07:59 Room Air 07/17/23 07:24
--- NOTE | 2023-07-18 12:01 | Hospitalist Progress Note ---
Date of Service July 18, 2023 Assessment & Plan (1) Dizziness: Plan: 43-year-old female with past med history significant for hypertension, moderate persistent asthma, mixed rhinitis, mitral valve prolapse, sinus tachycardia, irritable bowel syndrome, gastroparesis, GERD, migraines presents with Ongoing vertigo for last 2 weeks. Initially meclizine seemed to help but lately it is not helping. Also having right upper extremity tremor for some time. And lately developed some weakness in right lower extremity.Today was having significant dizziness nausea and vomiting. No headaches. No fevers. Lights bothering her. No chest pain or shortness of breath. No abdominal pain. Normal bowel and bladder movements. Hemodynamics are okay. Patient has had COVID in February 2003 and in March 2023 had had a near syncopal episode and having chest burning and dyspnea on exertion. Seen by cardiology and had echocardiogram which showed showed mild mitral valve prolapse and also had Holter which showed inappropriate sinus tachycardia. Patient is on atenolol. Plan for Stress Test in August 2023. Severe dizziness/vertigo Nausea and vomiting likely due to above Ambulatory dysfunction secondary to above H/O migraine DD: BPPV, Hemiplegic migraine Admits to undergoing through lot of stress lately --CTA head and neck no acute findings except for 1 mm saccular aneurysm arising of the left posterior cerebral artery at the junction of the P1 and P2 arteries --MRI brain:No acute findings in the head/brain. -- MRI thoracic, cervical, lumbar spine pending --Cervical spine MRI:Normal exam. No abnormal enhancement, disc herniation, spinal stenosis or abnormal cord signal. --Lumbar spine MRI:Mild degenerative disc disease in the lower lumbar spine. Remaining discs are well preserved for this age group.No abnormal enhancement, disc herniation or central spinal stenosis. --Thoracic spine MRI:Normal exam for this age group.. No abnormal enhancement, mass, abnormal cord signal, disc herniation or spinal stenosis. --ECHO: Mild concentric LVH. Left ventricle wall motion normal. Left ventricle systolic function normal. EF 60 to 65%. All chamber sizes are normal. No valvular disease. 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 Incidental finding on CT Will need repeat CT as outpatient for monitoring H/O Inappropriate sinus tachycardia On atenolol and digoxin Follows with cardiology Plan for stress test as outpatient Prediabetes HbA1c 6.1 Hypertriglyceridemia Known history Lifestyle changes Follow-up as outpatient Moderate persistent asthma Mixed rhinitis No signs of exacerbation Continue home meds monitor Hypertension continue atenolol monitor GERD On famotidine and PPI DVT prophylaxis Lovenox SQ CODE STATUS Full code Disposition Home Admission and Anticipated Discharge Date Admission Date: July 15, 2023 Subjective Patient is seen and examined at bedside States feeling a lot better today Vertigo/dizziness much improved Right lower extremity weakness mostly resolved No new complaints Discussed with patient's family at bedside Denies any chest pain, dyspnea, nausea, vomiting, headache, change in vision Prefers to be discharged home today Review of Systems Review of Systems: All systems reviewed & are unremarkable except as noted in Subjective Physical Exam Physical Exam: Physical Exam: Vitals signs as noted above General Appearance:Moderately built and nourished, no apparent distress Head: normocephalic, Atraumatic Eyes: normal inspection, EOMI Neck: supple, Trachea midline Respiratory/Chest: Normal breath sounds, CTA, No accessory muscle use Cardiovascular: S1, S2, No murmur Abdomen/GI:Soft, Non tender, Bowel sounds present Extremities/Musculoskeletal:normal inspection, no edema Neurologic/Psych:AAOX3, RLE 4/5 otherwise no other obvious focal deficits Skin: normal color, warm Results & Data Results & Data Vital Signs (Past 12 Hours) Vital Signs Temp Pulse Pulse Resp BP Pulse Ox Pulse Ox 07/18/23 11:58 36.4 C L 95 H 16 131/88 94 07/18/23 08:16 36.4 C L 89 16 121/80 93 07/18/23 08:00 93 07/18/23 07:00 82 07/18/23 03:44 36.5 C 82 16 108/71 94 O2 Del Method O2 Del Method 07/18/23 11:58 Room Air 07/18/23 08:16 Room Air 07/18/23 08:00 Room Air 07/18/23 07:00 07/18/23 03:44 Room Air
--- NOTE | 2023-07-18 12:15 | Discharge Summary ---
Date of Service July 18, 2023 Admission HPI Per Admitting Provider 43-year-old female with past med history significant for hypertension, moderate persistent asthma, mixed rhinitis, mitral valve prolapse, sinus tachycardia, irritable bowel syndrome, gastroparesis, GERD, migraines presents with Ongoing vertigo for last 2 weeks. Initially meclizine seemed to help but lately it is not helping. Also having right upper extremity tremor for some time. And lately developed some weakness in right lower extremity.Today was having significant dizziness nausea and vomiting. No headaches. No fevers. Lights bothering her. No chest pain or shortness of breath. No abdominal pain. Normal bowel and bladder movements. Hemodynamics are okay. Patient has had COVID in February 2003 and in March 2023 had had a near syncopal episode and having chest burning and dyspnea on exertion. Seen by cardiology and had echocardiogram which showed showed mild mitral valve prolapse and also had Holter which showed inappropriate sinus tachycardia. Patient is on atenolol. Plan for Stress Test in August 2023. Past medical status mentioned above. Past surgical history. EGD. EGD transendoscopic dilatation. Laparoscopic surgery looking for endometriosis. Shoulder arthroscopy. Social history. . No smoking. Alcohol rarely. No drug use. Family history. Father has allergies. Asthma. Mitral valve prolapse. Mother has allergies. Asthma. mitral valve prolapse. Maternal grandfather had pancreatic cancer. Stroke. Maternal grandmother had laryngeal cancer. Brother has asthma. Paternal grandmother had thyroid disorder. Admission Exam Per Admitting Provider General- Not in distress Head- atraumatic Eyes- PERRL. ENT- oropharynx clear Neck- supple, no JVD. Lungs- clear to auscultation no wheezing or crackles. Heart- regular rhythm; no murmur, no gallop. 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 Hypertriglyceridemia Discharge Data Allergies Allergy/AdvReac Type Severity Reaction Status Date / Time adhesive Allergy Unknown ADHESIVE Verified 07/14/23 20:07 TAPE CAUSES RASH midazolam AdvReac Unknown PARADOXICAL Verified 07/14/23 20:07 REACTION-STAYS AWAKE propranolol AdvReac Unknown CHEST PAIN Verified 07/14/23 20:07 Consultations 07/14/23 23:56 ED Decision to Admit Stat 07/15/23 08:00 Consult Neurology Routine Procedures Performed Laboratory Results WBC 7.18 K/ul (4.8-10.8) 07/16/23 06:09 RBC 4.61 M/uL (4.20-5.40) 07/16/23 06:09 Hgb 13.0 g/dl (12.0-16.0) 07/16/23 06:09 POC Hgb 15.0 g/dl (12.0-16.0) 07/14/23 19:12 Hct 38.3 % (37.0-47.0) 07/16/23 06:09 POC Hct 44 % (37-47) 07/14/23 19:12 MCV 83.1 fL (80.0-100.0) 07/16/23 06:09 MCH 28.2 pg (25.0-34.0) 07/16/23 06:09 MCHC 33.9 g/dL (32.0-36.0) 07/16/23 06:09 RDW Std Deviation 38.5 fL (36.4-46.3) 07/16/23 06:09 RDW Coeff of Shanon 12.7 % (11.5-14.5) 07/16/23 06:09 Plt Count 259 K/uL (130-400) 07/16/23 06:09 MPV 10.6 fL (9.4-12.4) 07/16/23 06:09 Immature Gran % (Auto) 0.3 % 07/15/23 07:39 Neut % (Auto) 66.7 % 07/15/23 07:39 Lymph % (Auto) 23.2 % 07/15/23 07:39 [place] % (Auto) 8.7 % 07/15/23 07:39 Eos % (Auto) 0.6 % 07/15/23 07:39 Baso % (Auto) 0.5 % 07/15/23 07:39 Neut # (Auto) 6.79 K/uL (1.40-6.50) H 07/15/23 07:39 Lymph # (Auto) 2.36 K/uL (1.20-3.40) 07/15/23 07:39 Ches[place] # (Auto) 0.88 K/uL (0.11-0.59) H 07/15/23 07:39 Eos # (Auto) 0.06 K/uL (0.00-0.50) 07/15/23 07:39 Baso # (Auto) 0.05 K/uL (0.00-0.20) 07/15/23 07:39 Immature Gran # (Auto) 0.03 K/uL (0.01-0.20) 07/15/23 07:39 ESR 48 mm/hr (0-20) H 07/14/23 19:05 D-Dimer 230 ug/L FEU (0-500) 07/16/23 06:09 POC Sodium 140 mmol/L (135-144) 07/14/23 19:12 Sodium 139 mmol/L (136-145) 07/16/23 06:09 POC Potassium 4.2 mmol/L (3.3-5.0) 07/14/23 19:12 Potassium 3.9 mmol/L (3.5-5.1) 07/16/23 06:09 POC Chloride 103 mmol/L (101-112) 07/14/23 19:12 Chloride 106 mmol/L (98-107) 07/16/23 06:09 Carbon Dioxide 25 mmol/L (21-32) 07/16/23 06:09 POC Total CO2 26 mmol/L (24-31) 07/14/23 19:12 Anion Gap 8 (3-11) 07/16/23 06:09 POC Anion Gap 16.0 mmol/L (16-25) 07/14/23 19:12 POC BUN 8 mg/dl (7-18) 07/14/23 19:12 BUN 9 mg/dl (6-23) 07/16/23 06:09 Creatinine 0.77 mg/dl (0.6-1.2) 07/16/23 06:09 POC Creatinine 0.7 mg/dl (0.6-1.3) 07/14/23 19:12 Est Cr Clr Drug Dosing 118.9 ml/min 07/16/23 06:09 Est GFR ( Amer) 111.2 ml/min 07/16/23 06:09 Est GFR (Non-Af Amer) 95.9 ml/min 07/16/23 06:09 BUN/Creatinine Ratio 11.7 (10-20) 07/16/23 06:09 Glucose 89 mg/dl (70-99(Fasting)) 07/16/23 06:09 POC Glucose (other) 128 mg/dl (70-99) H 07/14/23 19:12 Estimat Average Glucose 128 mg/dl 07/16/23 06:09 Hemoglobin A1c 6.1 % (4.5-5.6) H 07/16/23 06:09 Calcium 9.3 mg/dl (8.6-10.3) 07/16/23 06:09 POC Ioniz Calcium Nathan 1.24 mmol/l (1.12-1.32) 07/14/23 19:12 Magnesium 2.0 mg/dl (1.7-2.4) 07/16/23 06:09 Total Bilirubin 0.4 mg/dl (0.2-1.0) 07/14/23 19:05 AST 22 U/L (13-39) 07/14/23 19:05 ALT 30 U/L (7-52) 07/14/23 19:05 Alkaline Phosphatase 84 U/L (34-104) 07/14/23 19:05 C-Reactive Protein 0.72 mg/dl (0-0.5) H 07/14/23 19:05 Total Protein 8.5 gm/dl (6.0-8.3) H 07/14/23 19:05 Albumin 5.1 gm/dl (3.4-5.0) H 07/14/23 19:05 Globulin 3.4 gm/dl (2.5-4.0) 07/14/23 19:05 Albumin/Globulin Ratio 1.5 (0.9-2) 07/14/23 19:05 Triglycerides 236 mg/dl (0-150) H 07/16/23 06:09 Cholesterol 182 mg/dl (0-200) 07/16/23 06:09 LDL Cholesterol, Calc 97 mg/dl 07/16/23 06:09 VLDL Cholesterol, Calc 47 mg/dl (0-30) H 07/16/23 06:09 HDL Cholesterol 38 mg/dl 07/16/23 06:09 Cholesterol/HDL Ratio 4.8 (0-5) 07/16/23 06:09 Vitamin B12 367 pg/ml (180-914) 07/16/23 06:09 TSH 4.397 uIu/ml (0.300-4.500) 07/16/23 06:09 HCG, Qual Negative (Negative) 07/14/23 19:05 Lyme Disease Screen Negative (Negative) 07/16/23 06:09 Impressions Chest X-Ray 07/14/23 18:56 SINGLE VIEW CHEST CLINICAL HISTORY: Dizziness. FINDINGS: An AP, portable, upright chest radiograph is compared to study dated 07/02/2023. The cardiomediastinal silhouette is top normal for projection. There is mild bibasilar atelectasis. The lungs and pleural spaces are otherwise clear. No pneumothorax is seen. The bony thorax is grossly intact. Postoperative change is seen along the left humeral shaft. IMPRESSION: No acute cardiopulmonary abnormality. ACT 112: Negative or not required by law. Electronically signed by: Rafael Chen M.D. 07/14/2023 7:41 PM Head CTA 07/14/23 19:11 Exam(s): CTA HEAD With Contrast IV Amt: 119 cc opti 320 EXAM: CT Angiography Head With Intravenous Contrast CLINICAL HISTORY: Reason for exam: vertigo. TECHNIQUE: Axial computed tomographic angiography images of the head with intravenous contrast. CTDI is 14.53 mGy and DLP is 7.27 mGy-cm. Automated exposure control was utilized for the study. A dose lowering technique was utilized adhering to the principles of ALARA. MIP reconstructed images were created and reviewed. CONTRAST: Patient received 119 cc opti 320 of IV contrast COMPARISON: No relevant prior studies available. FINDINGS: Right internal carotid artery: No acute findings. Intracranial segment is patent with no significant stenosis. No aneurysm. Right anterior cerebral artery: Unremarkable. No occlusion or significant stenosis. No aneurysm. Right middle cerebral artery: Unremarkable. No occlusion or significant stenosis. No aneurysm. Right posterior cerebral artery: Unremarkable. No occlusion or significant stenosis. No aneurysm. Right vertebral artery: Unremarkable as visualized. Left internal carotid artery: No acute findings. Intracranial segment is patent with no significant stenosis. No aneurysm. Left anterior cerebral artery: Unremarkable. No occlusion or significant stenosis. No aneurysm. Left middle cerebral artery: Unremarkable. No occlusion or significant stenosis. No aneurysm. 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 No occlusion or significant stenosis. Left vertebral artery: Unremarkable as visualized. Basilar artery: Unremarkable. No occlusion or significant stenosis. No aneurysm. IMPRESSION: No large vessel intracranial occlusion. 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 Electronically signed by: Marcin Mclain M.D. 07/14/23 21:03 PM Neck CTA 07/14/23 19:11 Exam(s): CTA NECK With Contrast IV Amt: 119 cc opti 320 EXAM: CT Angiography Neck With Intravenous Contrast CLINICAL HISTORY: Reason for exam: vertigo. TECHNIQUE: Routine carotid CT angiography protocol was performed with intravenous contrast. NASCET criteria using the distal ICAs for comparison were used for evaluation of stenoses. CTDI is 13.5 mGy and DLP is 550.7 mGy-cm. Automated exposure control was utilized for the study. A dose lowering technique was utilized adhering to the principles of ALARA. MIP reconstructed images were created and reviewed. CONTRAST: Patient received 119 cc opti 320 of IV contrast COMPARISON: None. FINDINGS: VASCULATURE: Right common carotid artery: Unremarkable. No occlusion or significant stenosis. No dissection. Right internal carotid artery: Unremarkable. Extracranial segment is patent with no occlusion or significant stenosis. No dissection. Right external carotid artery: Unremarkable. No occlusion. Right vertebral artery: Unremarkable. No occlusion or significant stenosis. No dissection. Left common carotid artery: Unremarkable. No occlusion or significant stenosis. No dissection. Left internal carotid artery: Unremarkable. Extracranial segment is patent with no occlusion or significant stenosis. No dissection. Left external carotid artery: Unremarkable. No occlusion. Left vertebral artery: Unremarkable. No occlusion or significant stenosis. No dissection. NECK: Bones/joints: Unremarkable. No acute fracture. Soft tissues: Unremarkable. Sinuses: Mucus retention cysts within the right maxillary sinus with mild mucosal thickening. Lung apices: Clear. CAROTID STENOSIS REFERENCE USING NASCET CRITERIA: % ICA stenosis = (1 - narrowest ICA diameter/diameter of distal cervical ICA) x 100. Mild - <50% stenosis. Moderate - 50-69% stenosis. Severe - 70-94% stenosis. Near occlusion - 95-99% stenosis. Occluded - 100% stenosis. IMPRESSION: No acute findings in the arteries of the neck. Electronically signed by: Marcin Mclain M.D. 07/14/23 21:[address] 07/14/23 19:14 Exam(s): CT HEAD Without Contrast EXAM: CT Head Without Intravenous Contrast CLINICAL HISTORY: Reason for exam: vertigo. TECHNIQUE: Axial computed tomography images of the head/brain without intravenous contrast. CTDI is 31.65 mGy and DLP is 512.02 mGy-cm. Automated exposure control was utilized for the study. A dose lowering technique was utilized adhering to the principles of ALARA. COMPARISON: No relevant prior studies available. FINDINGS: Brain: Unremarkable. No hemorrhage. No significant white matter disease. No edema. Ventricles: Unremarkable. No ventriculomegaly. Bones/joints: Unremarkable. No acute fracture. Soft tissues: Unremarkable. Sinuses: Unremarkable as visualized. No acute sinusitis. Mastoid air cells: Unremarkable as visualized. No mastoid effusion. IMPRESSION: Normal head/brain CT. Electronically signed by: Marcin Mclain M.D. 07/14/23 20:52 PM Brain MRI 07/14/23 21:16 Exam(s): MRI HEAD W/WO Contrast IV Amt: 10 CC REA EXAM: MR Head Without and With Intravenous Contrast CLINICAL HISTORY: Reason for exam: severe vertigo. TECHNIQUE: Magnetic resonance images of the head/brain without and with intravenous contrast in multiple planes. CONTRAST: Patient received 10 CC REA of IV contrast COMPARISON: No relevant prior studies available. FINDINGS: Brain: Unremarkable. No mass. No hemorrhage. No acute infarct. Ventricles: Unremarkable. No ventriculomegaly. Bones/joints: Unremarkable. No acute fracture. Sinuses: 1.8 cm mucus retention cyst in the right maxillary sinus. No acute sinusitis. Mastoid air cells: Unremarkable as visualized. No mastoid effusion. Orbits: Unremarkable as visualized. IMPRESSION: No acute findings in the head/brain. Electronically signed by: Marcin Mclain M.D. 07/14/23 23:17 PM Cervical Spine MRI 07/15/23 12:58 Exam(s): MRI C SPINE IV Amt: 9.5cc gadavist EXAM: MR Cervical Spine With Intravenous Contrast CLINICAL HISTORY: Reason for exam: Stroke like symptoms. Nausea while standing. Lower extremity weakness, vertigo and vomiting. TECHNIQUE: Magnetic resonance images of the cervical spine with intravenous contrast in multiple planes. CONTRAST: Patient received 9.5cc Gadavist of IV contrast COMPARISON: CTA neck 07/14/23. FINDINGS: Vertebrae: Normal, smooth curvature. No marrow edema or compression deformity. No discitis or osteomyelitis. Spinal cord: No abnormal signal or abnormal enhancement. Soft tissues: No mass or abnormal enhancement. No interspinous ligamentous edema or prevertebral edema. No epidural fluid collection. DISCS/SPINAL CANAL/NEURAL FORAMINA: C2-C3: Unremarkable. C3-C4: Unremarkable. C4-C5: Unremarkable. C5-C6: Unremarkable. C6-C7: Unremarkable. C7-T1: Unremarkable. OTHER: No disc herniation or central spinal stenosis. No significant disc space narrowing. Facet joints are well preserved. No abnormal enhancement. IMPRESSION: 1. Normal exam. 2. No abnormal enhancement, disc herniation, spinal stenosis or abnormal cord signal. Electronically signed by: Valery Sanches M.D. 07/16/23 01:32 AM Lumbar Spine MRI 07/15/23 12:58 Exam(s): MRI L SPINE W/WO Contrast IV Amt: 9.5cc gadavist EXAM: MR Lumbar Spine Without and With Intravenous Contrast CLINICAL HISTORY: Reason for exam: Stroke like symptoms. TECHNIQUE: Magnetic resonance images of the lumbar spine without and with intravenous contrast in multiple planes. CONTRAST: Patient received 9.5cc Gadavist of IV contrast COMPARISON: No relevant prior studies available. FINDINGS: Vertebrae: Normal, smooth curvature. No listhesis, marrow edema or compression deformity. No discitis or osteomyelitis. No abnormal enhancement. Spinal cord: Unremarkable. Normal signal. No abnormal enhancement. Soft tissues: Unremarkable. No retroperitoneal masses or abnormal enhancement. DISCS/SPINAL CANAL/NEURAL FORAMINA: L1-L2: Unremarkable. No significant disc disease. No stenosis. L2-L3: Unremarkable. No significant disc disease. No stenosis. L3-L4: Unremarkable. No significant disc disease. No stenosis. L4-L5: Unremarkable. No significant disc disease. No stenosis. L5-S1: Loss of signal, small leftward annular tear and mild diffuse disc bulge. No stenosis. S1-S2: Rudimentary disc. Transitional vertebral segmentation. Numbering may vary between observers. Other: Mild facet hypertrophy. No abnormal enhancement. No disc herniation or central spinal stenosis. IMPRESSION: 1. Mild degenerative disc disease in the lower lumbar spine. 2. Remaining discs are well preserved for this age group. 3. No abnormal enhancement, disc herniation or central spinal stenosis. Electronically signed by: Valery Sanches M.D. 07/16/23 01:30 AM Thoracic Spine MRI 07/15/23 12:58 Exam(s): MRI T SPINE W/WO Contrast IV Amt: gativest 9.5cc EXAM: MR Thoracic Spine Without and With Intravenous Contrast CLINICAL HISTORY: Reason for exam: Stroke like symptoms. TECHNIQUE: Magnetic resonance images of the thoracic spine without and with intravenous contrast in multiple planes. CONTRAST: Patient received Gadavist 9.5cc of IV contrast COMPARISON: No relevant prior studies available. FINDINGS: Vertebrae: Unremarkable. Normal curvature. No marrow edema or compression deformity. No discitis or osteomyelitis. Discs/spinal canal/neural foramina: No disc herniation or central spinal stenosis. No significant degenerative disc disease. Spinal cord: Unremarkable. Normal signal. No abnormal enhancement. Soft tissues: Unremarkable. No epidural fluid collection or abscess. IMPRESSION: 1. Normal exam for this age group. 2. No abnormal enhancement, mass, abnormal cord signal, disc herniation or spinal stenosis. Electronically signed by: Valery Sanches M.D. 07/16/23 01:32 AM Ordered Studies 07/14/23 19:11 CTA head w con [CT angio head w con] Stat CTA neck with con [CT angio neck with con] Stat 07/14/23 19:14 CT head/brain wo con Stat 07/14/23 21:16 MR brain wo/w con Stat 07/15/23 12:58 MR cervical spine wo/w con Urgent MR lumbar spine wo/w con Urgent MR thoracic spine wo/w con Urgent Hospital Course (1) Dizziness: 43-year-old female with past med history significant for hypertension, moderate persistent asthma, mixed rhinitis, mitral valve prolapse, sinus tachycardia, irritable bowel syndrome, gastroparesis, GERD, migraines presents with Ongoing vertigo for last 2 weeks. Initially meclizine seemed to help but lately it is not helping. Also having right upper extremity tremor for some time. And lately developed some weakness in right lower extremity.Today was having significant dizziness nausea and vomiting. No headaches. No fevers. Lights bothering her. No chest pain or shortness of breath. No abdominal pain. Normal bowel and bladder movements. Hemodynamics are okay. Patient has had COVID in February 2003 and in March 2023 had had a near syncopal episode and having chest burning and dyspnea on exertion. Seen by cardiology and had echocardiogram which showed showed mild mitral valve prolapse and also had Holter which showed inappropriate sinus tachycardia. Patient is on atenolol. Plan for Stress Test in August 2023. Severe dizziness/vertigo Nausea and vomiting likely due to above Ambulatory dysfunction secondary to above H/O migraine DD: BPPV, Hemiplegic migraine Admits to undergoing through lot of stress lately --CTA head and neck no acute findings except for 1 mm saccular aneurysm arising of the left posterior cerebral artery at the junction of the P1 and P2 arteries --MRI brain:No acute findings in the head/brain. -- MRI thoracic, cervical, lumbar spine pending --Cervical spine MRI:Normal exam. No abnormal enhancement, disc herniation, spinal stenosis or abnormal cord signal. --Lumbar spine MRI:Mild degenerative disc disease in the lower lumbar spine. Remaining discs are well preserved for this age group.No abnormal enhancement, disc herniation or central spinal stenosis. --Thoracic spine MRI:Normal exam for this age group.. No abnormal enhancement, mass, abnormal cord signal, disc herniation or spinal stenosis. --ECHO: Mild concentric LVH. Left ventricle wall motion normal. Left ventricle systolic function normal. EF 60 to 65%. All chamber sizes are normal. No valvular disease. 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 Incidental finding on CT Will need repeat CT as outpatient for monitoring H/O Inappropriate sinus tachycardia On atenolol and digoxin Follows with cardiology Plan for stress test as outpatient Prediabetes HbA1c 6.1 Hypertriglyceridemia Known history Lifestyle changes Follow-up as outpatient Moderate persistent asthma Mixed rhinitis No signs of exacerbation Continue home meds monitor Hypertension continue atenolol monitor GERD On famotidine and PPI DVT prophylaxis Lovenox SQ CODE STATUS Full code Total Time Total Time Spent Total Time Spent (In Minutes): 45 minutes Discharge Plan Discharge Items Patient Disposition: Home - Self-Care Reason For Visit: SEVERE VERTIGO, TACHYCARDIA Discharge Diagnosis: Vertigo Strokelike symptoms 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 Hypertriglyceridemia Activity: Per Instructions section Exercise/Sports: Wait until after follow-up appointment Non-emergency contact: Primary Care Provider, Specialist and Neurologist Call non-emergency contact if: you have any medication questions, your symptoms worsen, your pain is concerning for you and you have a fever Follow-up/Referrals: Therese Roth PA-C [Physician Safety Deposit Clerk] - (Date & Time 07/23/2023 2:00 PM Provider Therese Roth PA-C Department Neurology [facility] ) Leeroy Swift MD [Primary Care Provider] - (Date & Time 07/22/2023 10:00 AM Provider Chacorta Tello MD Department [facility] ) Diet: Heart Healthy Addtl Attending Provider Instructions: Follow up with your Primary Care physician / o 07/22/2023 10:00 AM Follow up with your Neurologist Therese Roth PA-C on 07/23/2023 2:00 PM Follow up with ENT as recommended for further evaluation of Vertigo --Get repeat Head CTA per Neurology as outpatient for monitoring of saccular aneurysm of left posterior cerebral artery --Monitor your blood pressure regularly and discuss with your physician for further adjustment of medications as needed --No driving recommended until cleared by your primary care physician. Seek immediate medical attention if your symptoms reoccur or worsen Please take all medications as instructed on discharge list below. Please call if you have any questions or problems. You can reach a [facility] hospitalist on duty at [facility] 24 hours a day by calling [phone] Pending Studies at Discharge: No Stand-Alone Forms: My [facility], Work/School Release, Smoking Cessation Medications and DC Order Prescriptions: New aspirin 81 mg Tablet,Delayed Release (Dr/Ec) 81 mg PO QAM Qty: 30 0RF diazepam 5 mg Tablet 5 mg PO BID PRN (Reason: vertigo) Qty: 10 0RF meclizine 50 mg tablet 50 mg PO BID PRN (Reason: dizziness) Qty: 10 0RF Continued albuterol sulfate 2.5 mg /3 mL (0.083 %) solution for nebulization See Rx Instructions INH .COMPLEX PRN (Reason: Wheezing) Patient Comments: Use 1 unit dose in nebulizer every 4-6 hours PRN Rx Instructions: Use 1 unit dose in nebulizer every 4-6 hours PRN calcium carbonate-vitamin D3 1 tab PO QAM digoxin 125 mcg tablet 125 mcg PO HS multivitamin tablet 1 tab PO QAM ondansetron HCl 4 mg tablet 4 mg PO .COMPLEX PRN (Reason: nausea) Patient Comments: 4 mg PO every 4-6 hours PRN; Rx Instructions: 4 mg PO every 4-6 hours PRN; omeprazole 40 mg capsule,delayed release(DR/EC) 40 mg PO QAM lactobacillus combination no.8 1 tab PO HS beclomethasone dipropionate 40 mcg/actuation aerosol 0 mcg INH BID PRN (Reason: Shortness Of Breath Or Wheezing) atenolol [Tenormin] 50 mg tablet 75 mg PO QPM Patient Comments: As directed Zyrtec 10 mg capsule 10 mg PO HS Patient Comments: 10 mg PO ; zinc 50 mg tablet 50 mg PO QAM montelukast [Singulair] 10 mg tablet 10 mg PO QAM bupropion HCl [Wellbutrin XL] 150 mg tablet extended release 24 hr 150 mg PO QPM famotidine [Pepcid] 20 mg tablet 20 mg PO HS triamcinolone acetonide 55 mcg aerosol,spray 2 spray intranasal DAILY Rx Instructions: administer into each nostril cholecalciferol (vitamin D3) [Vitamin D3] 50 mcg (2,000 unit) Capsule 50 mcg PO QAM Stiolto Respimat 2.5-2.5 mcg/actuation mist 2 puff INH QAM albuterol sulfate 90 mcg/actuation Hfa Aerosol Inhaler 2 inh INHALATION QID PRN (Reason: Wheezing) vitamin B complex Tablet 1 tab PO DAILY azelastine 137 mcg (0.1 %) aerosol,spray 2 spray INTRANASAL BID atenolol 50 mg tablet 100 mg PO QAM Discharge Orders: Discharge Order (Routine); Ordered 07/18/23 Ordered By: Dale Dietz/Other Patient Handouts: A1C Admission Data Admit Date/Time: 07/15/23 00:33 Attending Provider: Dale Zuñiga Admit Provider: Harjinder Talamantes Primary Care Provider: Leeroy Swift Other Providers: Harjinder Talamantes; Therese Roth; Jose Guadalupe Youngblood; Therese Rene; Danis Baldwin; Smith Muñoz; Sim Tilley; Luis Carlos Urena; Carly Caldwell; Darrius Hu; Roc Hinds; Iqra Triana; Reinaldo Chowdhury; Lucero Mcarthur; Carole Munguia; Luis Carlos Fitzgerald Other Interventions: Discharge Summary Assessment (RN) Last Done: 07/18/23 12:50
== END 2023-07-18 13:35 | disposition home or self-care (01) | DRG 149 ==
LOC: ED 18:45 → 2N 07-15 00:33